=== PATIENT | male | born 1945 | race Caucasian/White ===

== ENCOUNTER 2020-05-21 12:48 | Day surgery (SDC) | payer MEDICARE, SELFPAY ==
[2020-05-14 14:33] VITALS: BMI 41.3
--- NOTE | 2020-05-20 13:37 | P.CONAN_ITS ---
Documented by User: Koki Britton 05/20/20 13:41 HPI - Anesthesia Eval Consult details Narrative: 74yo M for Colonoscopy Cardiac cleared [facility] Past Medical History Medical History (Updated 05/20/20 @ 13:39 by Koki Britton) Arthritis Atrial fibrillation Gutierrez esophagus Elevated cholesterol Heart palpitations History of blood transfusion History of GI bleed Hx of duodenal ulcer Hypertension On beta mayur at home MARYBETH on CPAP Varicose vein of leg Surgical History Surgical History (Updated 05/14/20 @ 14:42 by Barb Mcfadden) History of total hip replacement History of total right knee replacement History of ventral hernia repair Hx of appendectomy Hx of esophagogastroduodenoscopy Hx of toe surgery Social History Social History Are you a primary care administrative tech to a significant other at home: No Do you presently have visiting nurse or other home services: No Smoking Status: Former smoker Smoking Quit Date: > 30 yrs ago Use of substances other than those prescribed or required for medical reasons: Yes Substance Use Frequency: Daily Advance Directives: No Advance Directives Information Provided: No Advance Directives on File: No Recently lost weight without trying: No Meds Allergies Allergy/AdvReac Type Severity Reaction Status Date / Time No Known Allergies Allergy Unverified 05/14/20 14:25 [No Known Allergies*] Home Medications Medication Instructions Recorded Confirmed Type aspirin 325 mg PO DAILY 05/14/20 05/14/20 History bupropion HCl 300 mg PO QAM 05/14/20 05/14/20 History cholecalciferol (vitamin D3) 125 mcg PO DAILY 05/14/20 05/14/20 History [Vitamin D3] coenzyme Q10 [CoQ-10] 100 mg PO DAILY 05/14/20 05/14/20 History apkswswhaps-qeonxwdhw-emq C-Mn 1 cap PO DAILY 05/14/20 05/14/20 History [Glucosamine 1500 Complex] metoprolol succinate 100 mg PO DAILY 05/14/20 05/14/20 History omeprazole 40 mg PO DAILY 05/14/20 05/14/20 History Exam Exam Date and Time: May 20, 2020 1337 Height,Weight and Vital Signs: Height 5 ft 10 in Weight 130.635 kg Pertinent Lab Results Pertinent Lab Results: Laboratory Tests 02/14/20 02/14/20 11:49 11:49 WBC 8.1 Hgb 16.0 Hct 48.8 Plt Count 162 Sodium 140 Potassium 5.3 H Chloride 105 BUN 20 H Creatinine 1.24 Narrative Narrative: EKG 02/2020 SB@54 ECHO LVEF 65-70%, no signif valve path MIBI: Likely nml perfusion without any evidence of ischemia or infarction Assessment and Plan Assessment Anesthesia Assessment: Chart Reviewed Documented by User: Kash Vegas MD 05/21/20 13:31 PMF Past Medical History Medical History (Updated 05/20/20 @ 13:39 by Koki Britton) Arthritis Atrial fibrillation Gutierrez esophagus Elevated cholesterol Heart palpitations History of blood transfusion History of GI bleed Hx of duodenal ulcer Hypertension On beta mayur at home MARYBETH on CPAP Varicose vein of leg Surgical History Surgical History (Updated 05/14/20 @ 14:42 by Barb cMfadden) History of total hip replacement History of total right knee replacement History of ventral hernia repair Hx of appendectomy Hx of esophagogastroduodenoscopy Hx of toe surgery Social History Social History Are you a primary care administrative tech to a significant other at home: No Do you presently have visiting nurse or other home services: No Smoking Status: Former smoker Smoking Quit Date: > 30 yrs ago Use of substances other than those prescribed or required for medical reasons: Yes Substance Use Frequency: Daily Advance Directives: No Advance Directives Information Provided: No Advance Directives on File: No Recently lost weight without trying: No Meds Allergies Allergy/AdvReac Type Severity Reaction Status Date / Time No Known Allergies Allergy Unverified 05/14/20 14:25 [No Known Allergies*] Home Medications Medication Instructions Recorded Confirmed Type aspirin 325 mg PO DAILY 05/14/20 05/14/20 History bupropion HCl 300 mg PO QAM 05/14/20 05/14/20 History cholecalciferol (vitamin D3) 125 mcg PO DAILY 05/14/20 05/14/20 History [Vitamin D3] coenzyme Q10 [CoQ-10] 100 mg PO DAILY 05/14/20 05/14/20 History uqxmmeejtst-efdgsyxba-qfd C-Mn 1 cap PO DAILY 05/14/20 05/14/20 History [Glucosamine 1500 Complex] metoprolol succinate 100 mg PO DAILY 05/14/20 05/14/20 History omeprazole 40 mg PO DAILY 05/14/20 05/14/20 History Exam Airway Mallampati Class: I TM Dist: >3cm Neck ROM: Full Loose/Missing/Broken Teeth: No Heart: rrr Lungs: nl Other: ao Assessment and Plan Assessment Anesthesia Assessment: Anesthesia Plan Discussed and Chart Reviewed Final Anesthetic Review NPO: Yes ASA Class: III Final Preanesthetic Review: No Changes in Pt Med Stat, Meds/Allgs Chart Reviewed, Consent Obtained/Reviewed and Anes Risks/Benef Reviewed Patient Risk: High Procedure Risk: Low Anesthetic Plan Anesthetic Plan: MAC: Disposition: Standard PACU
[2020-05-21 13:15] VITALS: BP 144/68; PULSE 56; RESP 18; TEMP 36.2; O2SAT 97
[2020-05-21] MEDS: Lactated Ringers 1,000 ML 100 ML IVCONT (13:22)
--- NOTE | 2020-05-21 13:49 | MHC.SHP ---
Pre-Procedural Eval Section B Chief Complaint: SCREENING Details of Present Illness: colon cancer [id number]; hx atrial fibrillation Relevant Family History (Specify if Yes): No Relevant Social History: None Present Medications: see Short Stay Collaborative assessment Medical History: Significant History (MARYBETH, Hx A. Fib, currently ? stable. Obesity--BMI-42;hx of ulcer disease) Allergies: Allergies Allergy/AdvReac Type Severity Reaction Status Date / Time No Known Allergies Allergy Unverified 05/14/20 14:25 [No Known Allergies*] Review of Systems Sugical H&P ROS: Negative: Constitution, Respiratory, Neurological and Gastrointestinal and Yes, Specify: Cardiovascular (hx of atrial fib) Exam Surgical H&P Exam: Normal: HEENT, Normal: Lungs and Normal: Extremities and Significant Findings: Heart (sinus bradycardia) and Significant Findings: Abdomen (obese) Plan Diagnosis/Plan: Unchanged Patient has been examined and remains a candidate for the planned procedure--yes
[2020-05-21 14:22] VITALS: BP 106/47; PULSE 55; RESP 16; TEMP 36.6; O2SAT 95
--- NOTE | 2020-05-21 14:26 | PM.PROC ---
Brief Operative Note Date of procedure: 05/21/20 Pre-op diagnosis: Colon cancer screening Post-op diagnosis: other (Ascending colon polyp, [place] diverticulosis, 2-3+ Internal hemorrhoids.) Procedure: Colonoscopy with excisional polypectomy Anesthesia: MAC (LUZ MARIA Eli) Surgeon: China Cole Estimated blood loss (mL): 5 Pathology: other (ascending colon polyp) Condition: stable Disposition: PACU
[2020-05-21 14:37] VITALS: BP 125/75; PULSE 54; RESP 18; O2SAT 97
[2020-05-21 14:56] VITALS: TEMP 36.7; O2SAT 95
--- NOTE | 2020-05-23 08:06 | OP_ITS ---
SURGEON: China Cole MD PREOPERATIVE DIAGNOSIS: Colon cancer screening. PROCEDURE PERFORMED: Colonoscopy with excisional polypectomy. ESTIMATED BLOOD LOSS: Minimal blood loss. COMPLICATIONS: No complications. ANESTHESIA: Monitored. ANESTHESIOLOGIST: Rashida Eli CRNA. ASSISTANTS:NONE SPECIMENS: Specimen removed: ascending colon polyp excisionally with cold biopsy forceps. PRIMARY CARE PROVIDER: Dr. Hardy. POSTOPERATIVE DIAGNOSES: Polyp, ascending colon, diverticulosis throughout, internal hemorrhoids 2+. SUPERVISOR DEHYDROGENATION: China Cole M.D. CONDITION: Postprocedure, stable. FINDINGS: Prostate was not well evaluated on this exam. Video colonoscope was introducedwithout difficulty. It was navigated into the rectosigmoid. There were,multiple diverticula in clusters throughout the descending, transverse ascending colon into the region of the cecum, we arrived at the cecum. Appendiceal orifice was seen. Ileocecal valve was well seen. Prep was good throughout. Excellent spots. There was visualized 1 to 2 mm polyp in the ascending colon just before the cecum. This was removed excisionally with cold biopsy forceps. In the same area, there were 3 loosely formed AVMs, nonbleeding. Scope was slowly withdrawn, good rotational views. Anorectal verge was clear. PLAN/RECOMMENDATIONS: Repeat colon cancer screening in 5 years. DIRECTOR BROADCAST: No stylist assistant. GRAFT OR IMPLANTS: No grafts or implants. China Cole MD MEN/MODL / [id number] MTDD
== END 2020-05-21 15:20 | disposition home or self-care (01) ==
PROVIDERS: PCP Internal Medicine; Visit Provider Internal Medicine Gastroenterology
PROC: 0DJD8ZZ Inspection of Lower Intestinal Tract, Via Natural or Artificial Opening Endoscopic (ICD-10-PCS; CPT 45378; principal; 2020-05-21 13:50)
DX: Z12.11 Encounter for screening for malignant neoplasm of colon (principal); D12.2 Benign neoplasm of ascending colon; K57.30 Diverticulosis of large intestine without perforation or abscess without bleeding; K64.8 Other hemorrhoids; I10 Essential (primary) hypertension; I48.0 Paroxysmal atrial fibrillation; E66.01 Morbid (severe) obesity due to excess calories; Z68.41 Body mass index [BMI] 40.0-44.9, adult; Z79.1 Long term (current) use of non-steroidal anti-inflammatories (NSAID); Z79.82 Long term (current) use of aspirin; Z79.899 Other long term (current) drug therapy
CPT/HCPCS: 45380; 88305

== ENCOUNTER → 2020-06-10 09:40 | Outpatient (BNVA) | payer BC, SELFPAY | PROVIDERS: PCP Internal Medicine; Visit Provider Internal Medicine | DX: Z01.810 Encounter for preprocedural cardiovascular examination (principal); I48.0 Paroxysmal atrial fibrillation; G47.33 Obstructive sleep apnea (adult) (pediatric); Z99.89 Dependence on other enabling machines and devices | CPT/HCPCS: 93005 ==

== ENCOUNTER → 2021-07-17 15:36 | Outpatient (BNVA) | payer MEDICARE, SELFPAY | PROVIDERS: PCP Internal Medicine; Visit Provider Internal Medicine | DX: G47.33 Obstructive sleep apnea (adult) (pediatric) (principal); E66.01 Morbid (severe) obesity due to excess calories; Z99.89 Dependence on other enabling machines and devices; Z68.41 Body mass index [BMI] 40.0-44.9, adult | CPT/HCPCS: 99212 ==

== ENCOUNTER 2021-10-25 13:19 | Outpatient (REF) | payer MEDICARE, SELFPAY ==
[2021-10-25 14:29] LABS: Influenza A PCR NEGATIVE (Negative); Influenza B PCR NEGATIVE (Negative); Resp Syncy Virus RNA Qual PCR NEGATIVE (Negative); SARS COV2 PCR INHOUSE NEGATIVE (Negative)
== END 2021-10-25 13:20 | disposition home or self-care (01) ==
LOC: HO.LNP 13:19
PROVIDERS: Visit Provider Physician Assistant
DX: Z20.822 Contact with and (suspected) exposure to COVID-19 (principal); B34.9 Viral infection, unspecified
CPT/HCPCS: 0241U

== ENCOUNTER → 2021-11-10 10:17 | Outpatient (BNVA) | payer MEDICARE, SELFPAY | PROVIDERS: PCP Internal Medicine; Visit Provider Internal Medicine | DX: G47.33 Obstructive sleep apnea (adult) (pediatric) (principal); J20.9 Acute bronchitis, unspecified; E66.01 Morbid (severe) obesity due to excess calories; Z99.89 Dependence on other enabling machines and devices; Z68.41 Body mass index [BMI] 40.0-44.9, adult | CPT/HCPCS: 99212 ==

== ENCOUNTER → 2022-03-16 10:13 | Outpatient (BNVA) | payer MEDICARE, SELFPAY | PROVIDERS: PCP Internal Medicine; Visit Provider Internal Medicine | DX: G47.33 Obstructive sleep apnea (adult) (pediatric) (principal); E66.01 Morbid (severe) obesity due to excess calories; Z68.41 Body mass index [BMI] 40.0-44.9, adult; Z99.89 Dependence on other enabling machines and devices | CPT/HCPCS: 99212 ==

== ENCOUNTER 2022-04-29 08:11 | Outpatient (REF) | payer MEDICARE, SELFPAY ==
[2022-04-29 08:33] LABS: MANUAL DIFF FLAG NO
[2022-04-29 08:43] LABS: Basophils Percent Auto 0.5 % (0-2); Eosinophils Absolute Auto 0.4 X10*3/uL (0.0-0.4); Eosinophils Percent Auto 4.8 % (0-4); Hematocrit 48.3 % (42.0-52.0); Hemoglobin 16.4 g/dl (14.0-18.0); Imm Gran Abs Auto 0.03 X10*3/uL (0.00-0.03); Imm Gran Pct Auto 0.4 % (0.0-0.4); Lymphocytes Absolute Auto 0.7 X10*3/uL (1.2-4.9); Lymphocytes Percent Auto 8.8 % (20-40); Mean Corpuscular Hemoglobin 29.7 pg (27.0-33.0); Mean Corpuscular Volume 87.5 fL (80.0-98.0); Monocytes Absolute Auto 0.9 X10*3/uL (0.1-1.2); Monocytes Percent Auto 11.8 % (2-11); Neutrophils Absolute Auto 5.4 x10*3/uL (2.0-8.3); Neutrophils Percent Auto 73.7 % (45-73); Platelet Count 174 X10*3/uL (160-400); Red Blood Count 5.52 X10*6/uL (4.60-5.80); Red Cell Distribution Width 13.8 % (11.0-16.0); White Blood Count 7.4 X10*3/uL (4.8-10.8)
[2022-04-29 09:18] LABS: Alanine Aminotransferase 32 U/L (0-40); Albumin Level 4.3 g/dL (3.5-5.0); Alkaline Phosphatase 119 U/L (39-117); Anion Gap 12 (12-20); Aspartate Amino Transferase 27 U/L (5-37); Bilirubin Total 0.6 mg/dL (0.0-1.0); Blood Urea Nitrogen 23 mg/dL (9-16); Calcium 9.8 mg/dL (8.4-10.2); Carbon Dioxide 30 mmol/L (22-29); Chloride 106 mmol/L (96-108); Cholesterol 194 mg/dL; Estimated Glomerular Filt Rate 51; Glucose Fasting 112 mg/dL (60-99); HDL Cholesterol 43 mg/dL; LDL Cholesterol Calculated 131 mg/dl; Potassium 5.4 mmol/L (3.3-5.1); Sodium 143 mmol/L (135-145); Total Protein 7.2 g/dL (6.5-8.0); Triglycerides 104 mg/dL
[2022-04-29 09:35] LABS: Appearance Urine Clear; Color Urine Yellow; Glucose Urine UA Negative (Negative); Leukocyte Esterase Urine Trace (Negative); Nitrite Urine Negative (Negative); PH 6.5 (5.0-9.0); Specific Gravity - Urine 1.025 (1.005-1.025); UMIC TRIGGER UA YES; Urine Blood Negative (Negative); Urine Ketones Negative (Negative); Urine Protein Negative (Neg-Trace)
[2022-04-29 09:43] LABS: Prostate Specific Antigen 1.71 ng/mL (<0.05-4.0); Thyroid Stimulating Hormone 3.29 uIU/mL (0.32-4.0); Vitamin D 25-OH Total 62.2 ng/mL (>30)
[2022-04-29 09:43] LABS: Bacteria Urine None Seen (None Seen); Hyaline Casts Urine 0-2 /LPF (0-2); RBC Urine 0-2 /HPF (0-2); Squamous Epithelial Cell Urine 0-2 /HPF (0-2); WBC Urine 0-5 /HPF (0-5)
== END 2022-04-29 08:12 | disposition home or self-care (01) ==
LOC: HO.LAB 08:11
PROVIDERS: Visit Provider Internal Medicine
DX: Z12.5 Encounter for screening for malignant neoplasm of prostate (principal); I48.0 Paroxysmal atrial fibrillation; E66.01 Morbid (severe) obesity due to excess calories; G47.33 Obstructive sleep apnea (adult) (pediatric); M17.12 Unilateral primary osteoarthritis, left knee; N40.1 Benign prostatic hyperplasia with lower urinary tract symptoms; R35.0 Frequency of micturition; R39.198 Other difficulties with micturition
CPT/HCPCS: 36415; 51798; 80053; 80061; 81001; 82306; 84153; 84443; 85025; 99202

== ENCOUNTER 2022-08-31 08:03 | Outpatient (REF) | payer MEDICARE, SELFPAY ==
--- NOTE | ~2022-08-31 | US_ITS ---
EXAMINATION: US RETROPERITONEAL LIMITED (RENAL ONLY) CLINICAL INFORMATION: Other difficulties with micturition. COMPARISON: CT abdomen and pelvis with contrast 04/06/2019. TECHNIQUE: Real-time imaging of the kidneys. FINDINGS: RIGHT KIDNEY: 12.0 x 4.8 x 6.0 cm (SAG x AP x TRV). The kidney is normal in size, contour, and echogenicity. Renal cortical thickness is normal. No calculi or focal parenchymal lesions. No hydronephrosis. LEFT KIDNEY: 14.3 x 5.8 x 5.2 cm (SAG x AP x TRV). The kidney is normal in size, contour, and echogenicity. Renal cortical thickness is normal. No renal calculi or hydronephrosis. A benign 4.6 cm cyst is again noted in the upper pole of the left kidney which needs no additional imaging or followup. No solid renal masses. US/US renal BI IMPRESSION: Negative exam.
== END 2022-08-31 08:04 | disposition home or self-care (01) ==
LOC: HO.US 08:03
PROVIDERS: PCP Internal Medicine; Visit Provider Urology
DX: N40.1 Benign prostatic hyperplasia with lower urinary tract symptoms (principal); R39.198 Other difficulties with micturition
CPT/HCPCS: 76775

== ENCOUNTER → 2022-11-17 10:19 | Outpatient (BNVA) | payer MEDICARE, SELFPAY | PROVIDERS: PCP Internal Medicine; Visit Provider Internal Medicine | DX: G47.33 Obstructive sleep apnea (adult) (pediatric) (principal); E66.01 Morbid (severe) obesity due to excess calories; Z99.89 Dependence on other enabling machines and devices; Z68.42 Body mass index [BMI] 45.0-49.9, adult | CPT/HCPCS: 99212 ==

== ENCOUNTER → 2023-02-04 15:17 | Outpatient (REF) | payer MEDICARE, SELFPAY ==
--- NOTE | 2023-02-04 15:23 | ECG_ITS ---
Test Reason : AFIB Blood Pressure : / mmHG Vent. Rate : 062 BPM Atrial Rate : 000 BPM P-R Int : 000 ms QRS Dur : 100 ms QT Int : 414 ms P-R-T Axes : 000 -29 007 degrees QTc Int : 420 ms Atrial fibrillation Abnormal ECG When compared with ECG of 16-JUL-2019 12:29, Atrial fibrillation has replaced Sinus rhythm Referred By: Chris Hardy Electronically Signed By:Damon Rodriguez
--- NOTE | 2023-02-04 15:24 | CA_ITS ---
Transthoracic Echocardiogram Patient (Last, First, Middle): Bravo Moore C Gender: Male Date of : 1945 Age: 77 Procedure Date: 02/04/2023 Procedure Type: Transthoracic Echocardiogram Location: OP Height: 175.26 cm Weight: 127.01 kg BSA: 2.38 m2 Heart Rate: bpm BP: 133 / 78 mmHg Wrist Hemmer: TO Referring MD: Chris Hardy DO Symptoms: PAF I48.0 Study Quality: Fair/Contrast Conclusions: - Normal left ventricular cavity size. There is mildly increased left ventricular wall thickness. The left ventricular systolic function is hyperdynamic. The visually estimated ejection fraction is >70%. - E/E prime ratio is >15, consistent with elevated filling pressures. - Mildly increased right ventricular cavity size. There is normal right ventricular systolic function. - There is moderate aortic valve stenosis. The peak aortic velocity is 3.14 m/s. The mean gradient is 21 mmHg. The aortic valve area is 0.96 cm2. - There is mild dilatation of the ascending aorta measuring 3.80 cm and mild dilatation of the aortic arch measuring 3.70 cm. Findings Procedure Information Contrast agent, definity, is being given per protocol without apparent complications. Left Ventricle Normal left ventricular cavity size. There is mildly increased left ventricular wall thickness. The left ventricular systolic function is hyperdynamic. The visually estimated ejection fraction is >70%. There is no evidence of regional wall motion abnormalities. Abnormal diastolic function is noted. Spectral Doppler is indicative of a restrictive filling pattern. E/E prime ratio is >15, consistent with elevated filling pressures. Right Ventricle Mildly increased right ventricular cavity size. There is normal right ventricular systolic function. Atria The left atrium is mildly dilated. The right atrium is normal in size. Aortic Valve There is a normal trileaflet aortic valve. There is moderate calcification of the aortic valve. There is moderate aortic valve stenosis. The peak aortic velocity is 3.14 m/s. The mean gradient is 21 mmHg. The aortic valve area is 0.96 cm2. There is no aortic valve regurgitation. Mitral Valve There is mild mitral annular calcification. There is no mitral valve regurgitation. There is no mitral valve stenosis. Pulmonic Valve Normal pulmonic valve structure and function. There is no pulmonic valve regurgitation. Tricuspid Valve Normal tricuspid valve structure and function. There is no tricuspid valve regurgitation. Tricuspid regurgitation envelope is inadequate for calculation of right ventricular systolic pressure. Normal right atrial pressure. Great Vessels There is mild dilatation of the ascending aorta measuring 3.80 cm and mild dilatation of the aortic arch measuring 3.70 cm. The visualized portions of the pulmonary artery and branches are normal. Venous The inferior vena cava is normal in size and collapses greater than 50% with inspiration. Pericardium/Pleural There is no evidence of pericardial effusion. Prior Study Comparison Changes noted compared to prior study dated: 11/26/2017. Moderate present Measurements 2D Linear Measurements IVSd: 1.20 0.6-0.9/0.6-1.0 cm LVIDd: 5.30 3.9-5.3/4.2-5.9 cm LVIDd Index: 2.23 2.4-3.2/2.2-3.1 cm/m2 LVIDs: 2.80 2.0-3.6 cm LVPWd: 1.10 0.7-1.1 cm LA Diam: 3.80 2.7-3.8/3.0-4.0 cm LAIDs Index: 1.60 1.5-2.3 cm/m2 LV Mass: 301.70 67-162/88-224 g LV Mass Index: 126.77 43-95/49-115 g/m2 LVOT Diam: 2.00 3.0+(-)1.3 cm 2D Systolic Function EF 4C: 66.70 >55% EF 2C: 68.40 >55% EF BiP: 68.20 >55% Mitral Valve MV VTI: 0.41 MV Pk Toni: 1.10 MV Mn Toni: 0.65 MV Pk Grad: 5.00 MV Mn Grad: 2.00 MV Pk E: 1.24 MV PK A: 0.53 MV Decel Time: 256.00 E/A: 2.30 E'Lateral: 9.57 E'Medial: 4.79 E/E' Med: 25.90 E/E' Lat: 13.00 PHT: 75.00 MVA PHT: 2.93 MVA Continuity: 1.97 Decel [place]: 4.84 Aortic Valve AoV Pk Toni: 3.14 AoV Mn Toni: 2.13 AoV VTI: 0.84 AoV Pk Grad: 39.00 Aov Mn Grad: 21.00 ERNESTO Cont.VTI: 0.96 LVOT LVOT Pk Toni: 0.97 LVOT Mn Toni: 0.63 LVOT VTI: 0.26 LVOT Pk Grad: 4.00 LVOT Mn Grad: 2.00 LVOT Diam: 2.00 LVOT Area: 3.14 Diastolic Function MV Pk E: 1.24 MV Pk A: 0.53 E/A: 2.30 E'Medial: 4.79 E/E' Med: 25.90 E' Laterial: 9.57 E/E' Lat: 13.00 Right Ventricle TAPSE (mm): 23.10 TVS' Toni: 10.20 Tricuspid Valve TR Pk Toni: 3.03 TR Pk Grad: 37.00 Great Vessels Aorta Sinus of Valsalva: 3.40 2.0-3.[address] [place]: 2.20 1.7-3.4 cm Ao Asc: 3.80 2.1-3.4 cm Ao Arch: 3.70 Updated in Other Vendor System with Status of Final Damon Rodriguez MD electronically signed on 02/06/2023 9:08:43 PM with status of Final
== END ==
LOC: HO.CARD 15:17
PROVIDERS: PCP Internal Medicine; Visit Provider Internal Medicine
DX: I48.0 Paroxysmal atrial fibrillation (principal)
CPT/HCPCS: 93005; 93306; Q9957

== ENCOUNTER → 2023-02-04 15:23 | Outpatient (BNV) | payer MEDICARE, SELFPAY | PROVIDERS: PCP Internal Medicine; Visit Provider Internal Medicine Cardiovascular Disease | DX: I48.0 Paroxysmal atrial fibrillation (principal) | CPT/HCPCS: 93010; 93306 ==

== ENCOUNTER 2023-02-25 11:19 | Outpatient (AMB) | payer MEDICARE, SELFPAY ==
--- NOTE | 2023-02-25 11:22 | A.OFFVIS_ITS ---
Intake Vital Signs 02/25/23 11:23 Height 5 ft 9 in Weight 279 lb 15.793 oz BMI 41.3 BP 136/72 Blood Pressure Location Lt brachial Position Sitting Pulse 61 Intake Visit Reasons: 2020/FRIDA/Rose Hardy Intake Note: overdue follow up Stiff Straw Hat Washer Required: No Accompanied by: Self / Same As Patient Allergies No Known Allergies [No Known Allergies*] Allergy (Verified 02/25/23 11:24) Medication List - Last Reconciled 02/25/23 by Arnoldo Warren MD cholecalciferol (vitamin D3) 25 mcg PO DAILY coenzyme Q10 (CoQ-10) 100 mg PO DAILY dsuqoolfmqp-mcxeafgdq-fsc C-Mn 500-400 mg 1 cap PO DAILY hydrochlorothiazide 25 mg PO DAILY metoprolol succinate ER 100 mg PO DAILY omeprazole 40 mg PO DAILY tamsulosin (Flomax) 0.4 mg PO BEDTIME HPI HPI Comments History of Present Illness Details Bravo returns after almost 3 years. Last seen in 2019. To recall, multiple medical comorbidities including obesity, obstructive sleep apnea, hypertension among others. Episode of atrial fibrillation with rapid rate in 2018. He converted to sinus and was on anticoagulation but later stopped taking it. Then due to aches and pains, was taking NSAIDs, and then had GI bleeding from duodenal ulcers. Since around that time he has not really taken any anticoagulation. In the past, discussed numerous times about going back on some anticoagulation but he never was interested. He continues to state that he just wants to take supplements which he says are also blood thinners. Overall generally doing okay. No clear cardiac symptoms like angina or shortness of breath or in fact anything cardiac sounding. Weight is just about the same as before. [facility] Medical History Acute bronchitis Arthritis Atrial fibrillation Gutierrez esophagus Elevated cholesterol Heart palpitations History of blood transfusion History of GI bleed Hx of duodenal ulcer Hypertension Morbid obesity On beta mayur at home MARYBETH on CPAP PAF (paroxysmal atrial fibrillation) Varicose vein of leg Surgical History History of total hip replacement History of total right knee replacement History of ventral hernia repair Hx of appendectomy Hx of esophagogastroduodenoscopy Hx of toe surgery Family History Father Lung cancer Mother Cancer Social History Are you a primary acute care occupational therapist to a significant other at home: No Do you presently have visiting nurse or other home services: No Alcohol intake: current Alcohol intake frequency: a few times a week Patient Tobacco Use Status: Former Tobacco user Review of Systems Const Denies chills, Denies fatigue, Denies fever(s), Denies frequent falls, Denies weakness, Denies weight gain and Denies weight loss ENT Denies dizziness Card Denies chest pain, Denies leg edema, Denies lightheadedness, Denies palpitations, Denies dyspnea, Denies dyspnea on exertion, Denies orthopnea and Denies other (Loss of consciousness) Resp Denies cough, Denies dyspnea and Denies dyspnea on exertion GI Denies hematochezia and Denies change in bowel habits Reports no additional complaints and Reports as per HPI Musc Denies abnormal gait, Denies muscle weakness, Denies numbness, Denies radiating pain into limb and Denies tingling Skin/Breast Reports system reviewed and no additional complaints, except as documented and Reports as per HPI Neuro Denies abnormal gait, Denies dizziness, Denies frequent falls, Denies numbness, Denies tingling and Denies weakness Endo Denies fatigue and Denies palpitations Physical Exam Vital Signs: Last Vital Signs Pulse 61 02/25/23 11:23 BP 136/72 02/25/23 11:23 BMI result Body Mass Index 41.3 Const General: comfortable and no acute distress Orientation/consciousness: patient oriented x3 HEENT Other: Unremarkable Head: Yes normal to inspection Neck Neck: Yes normal visual inspection Chest Chest palpation & inspection: normal inspection of the chest Resp Auscultation: clear to auscultation bilaterally Cardio Palpation: normal PMI Heart sounds: S1 normal heart sound present, S2 normal heart sound present, no gallops, Murmur heart sound present systolic II/ and at the right sternal border and no rubs GI Palpation (GI): Soft to palpation Back/Spine/Pelvis Other: unremarkable Skin General skin exam: no rashes or lesions noted Neuro General: patient oriented x3 Extrem General: Yes normal to inspection Psych Mental Status: mental status grossly normal Office Procedures EKG Details: EKG with sinus rhythm and PACs. No significant ST-T changes and otherwise unremarkable. [id number], Complete Assessment & Plan Assessment & Plan (1) PAF (paroxysmal atrial fibrillation): Code(s): I48.0 - Paroxysmal atrial fibrillation Plan: Seems stable. No clinically documented episodes recently. He remains on beta- blockers. Still not interested in any anticoagulation and again discussed today. Will get a Holter monitor. (2) Non-rheumatic aortic stenosis: Code(s): I35.0 - Nonrheumatic aortic (valve) stenosis Plan: In the most recent echocardiogram, mean gradient across aortic valve was 21 mm Hg. Calculated valve area of 0.96 sq cm. Dimensionless index 0.3. Hyperdynamic LVEF. Overall, suspect no more than moderate aortic stenosis. Will need to be monitored periodically. Discussed with patient. (3) MARYBETH on CPAP: Comment: H/O MARYBETH SINCE 2014 HE DOES HAVE CPAP MACHINE AND USES REGULARLY CURRENTLY DOING BETTER WITH PRESSURE OF 12 CM. BUT HE HAS ISSUE WITH THE MASK, HAS SAYS AIR LEAK. JUST RECEIVED THE NASAL PILLOWS BUT WITHOUT THE HEAD GEAR. I ALSO GAVE HIM A LARGE SIZE FULLFACE MASK, TO TRY. MY OFFICE IS TRYING TO CONTACT THE [facility] HE OFFICE, AND HAVE THEM CHECK HIS CPAP MACHINE WELL THE MASKS. Code(s): G47.33 - Obstructive sleep apnea (adult) (pediatric); Z99.89 - Dependence on other enabling machines and devices Plan: Continue CPAP. Orders: Orders ECG 3 day holter monitor Today I48.0 - Paroxysmal atrial fibrillation Coding Level of Care Code Est Pt Level 4 (67579) Diagnoses PAF (paroxysmal atrial fibrillation) I48.0 Non-rheumatic aortic stenosis I35.0 MARYBETH on CPAP G47.33; Z99.89 CPT Codes EKG - CPT: 07706-[id number], Complete ([id number])
[2023-02-25 11:23] VITALS: BP 136/72; PULSE 61; BMI 41.3
== END 2023-02-25 11:46 | disposition home or self-care (01) ==
PROVIDERS: PCP Internal Medicine; Referring Provider Internal Medicine; Visit Provider Internal Medicine
DX: I48.0 Paroxysmal atrial fibrillation (principal); I35.0 Nonrheumatic aortic (valve) stenosis; G47.33 Obstructive sleep apnea (adult) (pediatric); Z99.89 Dependence on other enabling machines and devices
CPT/HCPCS: 93010; 99214

== ENCOUNTER → 2023-02-25 11:19 | Outpatient (BNVA) | payer MEDICARE, SELFPAY | PROVIDERS: PCP Internal Medicine; Referring Provider Internal Medicine; Visit Provider Internal Medicine | DX: I48.0 Paroxysmal atrial fibrillation (principal); I35.0 Nonrheumatic aortic (valve) stenosis; G47.33 Obstructive sleep apnea (adult) (pediatric); Z79.899 Other long term (current) drug therapy; Z99.89 Dependence on other enabling machines and devices | CPT/HCPCS: 93005; 99212 ==

== ENCOUNTER → 2023-03-18 09:36 | Outpatient (REF) | payer MEDICARE, SELFPAY ==
--- NOTE | 2023-03-18 09:39 | HM_ITS ---
* Total monitoring time 3 days. * Underlying rhythm is sinus. Average ventricular rate 65/Min. Range 49- 91/Min. * Frequent supraventricular ectopy with a burden of 17%. * No definitive atrial fibrillation. * Very rare ventricular ectopy. * Pauses noted, 2.8 seconds during awake hours. * No patient markers or events in diary. MTDD
== END ==
LOC: HO.CARD 09:36
PROVIDERS: PCP Internal Medicine; Visit Provider Internal Medicine
DX: I48.0 Paroxysmal atrial fibrillation (principal)
CPT/HCPCS: 93242

== ENCOUNTER 2023-05-31 09:47 | Outpatient (AMB) | payer MEDICARE, SELFPAY ==
--- NOTE | 2023-05-31 09:55 | A.OFFVIS_ITS ---
Intake Vital Signs 05/31/23 09:56 Height 5 ft 9 in Weight 283 lb BMI 41.8 BP 122/74 Blood Pressure Location Lt brachial Position Sitting Pulse 58 Pulse Source Pulse Oximeter Pulse Oximetry (%) 96 Oxygen Delivery Method Room Air Intake Visit Reasons: Obstructive sleep apnea Intake Note: pt is here for follow up and states the humidfication is not working properly, but using is it everynight, and mask issue Clipman Required: No Allergies No Known Allergies [No Known Allergies*] Allergy (Verified 05/31/23 10:23) Medication List - Last Reconciled 05/31/23 by Corey Cary MD cholecalciferol (vitamin D3) 25 mcg PO DAILY coenzyme Q10 (CoQ-10) 100 mg PO DAILY wtoubremqkv-xvpkbtqpv-enc C-Mn 500-400 mg 1 cap PO DAILY hydrochlorothiazide 25 mg PO DAILY metoprolol succinate ER 100 mg PO DAILY omeprazole 40 mg PO DAILY tamsulosin (Flomax) 0.4 mg PO BEDTIME Do you need a note to return to daycare/school/sports/work: No HPI Obstructive sleep apnea HPI Details THIS 77 YEARS OLD VERY PLEASANT GENTLEMAN WHO IS MORBIDLY OBESE, ESPECIALLY WITH ABDOMINAL OBESITY, HE HAS DIAGNOSIS OF OBSTRUCTIVE SLEEP APNEA FOR THE PAST MANY YEARS, AND HAS BEEN USING CPAP. HIS DEVICE IS MORE THAN 6 YEARS OLD, HIS REGIONAL SLEEP STUDY WAS PERFORMED SOMEWHERE IN [facility], WE DO NOT HAVE A COPY OF THAT SLEEP STUDY HE USES THE CPAP EVERY NIGHT BUT CLAIMS THAT HE HAS ISSUE WITH THE HUMIDIFICATION CHAMBER, HE WAKES UP WITH DRY MOUTH. CURRENTLY USING FULL FACE MASK BUT HE LIKES TO TRY A NASAL MASK. I EXPLAINED TO HIM THAT WITH THE NASAL MASK HE MAY HAVE TO USE CHINSTRAP, AND THEN HE SAY IS HE WILL RATHER CONTINUE THE FULLFACE MASK. [facility] Medical History Acute bronchitis Morbid obesity PAF (paroxysmal atrial fibrillation) Arthritis Varicose vein of leg Elevated cholesterol On beta mayur at home History of blood transfusion Gutierrez esophagus MARYBETH on CPAP History of GI bleed Hypertension Heart palpitations Hx of duodenal ulcer Atrial fibrillation Surgical History History of total hip replacement Hx of toe surgery History of total right knee replacement Hx of esophagogastroduodenoscopy History of ventral hernia repair Hx of appendectomy Family History Father Lung cancer Mother Cancer Social History Are you a primary career development associate to a significant other at home: No Do you presently have visiting nurse or other home services: No Alcohol intake: current Alcohol intake frequency: a few times a week Patient Tobacco Use Status: Former Tobacco user Review of Systems Const All systems reviewed & are unremarkable except as noted in HPI and below Eyes Reports no additional complaints ENT Reports nasal congestion (ONLY MILD OFF AND ON) Card Denies chest pain, Reports irregular heart rhythm, Denies leg edema and Denies dyspnea Resp Denies cough, Denies dyspnea and Denies wheezing GI Reports no additional complaints Reports no additional complaints Musc Reports no additional complaints Skin/Breast Reports system reviewed and no additional complaints, except as documented Neuro Reports no additional complaints Psych Reports no additional complaints Aller/Immun Denies wheezing Physical Exam Vital Signs: Last Vital Signs Pulse 58 05/31/23 09:56 BP 122/74 05/31/23 09:56 Pulse Ox 96 05/31/23 09:56 Oxygen Delivery Method Room Air 05/31/23 09:56 BMI result Body Mass Index 41.8 Const General: healthy appearing (EXCEPT FOR BEING OVERWEIGHT), comfortable, no acute distress, alert and awake Orientation/consciousness: patient oriented x3 HEENT Head: Yes normal to inspection General nose exam: No nasal polyps present and No nasal discharge present Face and sinus: Yes sinuses nontender Mouth: oropharynx normal Throat: Yes posterior oropharynx normal Eyes General: appearance normal, both eyes and all related structures Neck Neck: Yes normal visual inspection, Yes no lymphadenopathy, Yes trachea midline and Yes no JVD Thyroid: Thyroid normal Chest Chest palpation & inspection: normal inspection of the chest, normal palpation of entire chest wall and no tenderness Resp Other: PERCUSSION NOTE RESONANT, BREATH SOUNDS ARE SLIGHTLY DISTANT PROBABLY DUE TO HIS OBESE CHEST WALL. THERE ARE NO WHEEZES OR CREPITATIONS Cardio Palpation: normal PMI Rate: regular rate Rhythm: regular rhythm Heart sounds: no gallops and no murmurs GI Palpation (GI): Soft to palpation, nontender, No hepatosplenomegaly present and no masses Auscultation: normal bowel sounds Back/Spine/Pelvis Thoracic/Lumbar Spine: thoracic and lumbar spine normal to inspection Skin General skin exam: no rashes or lesions noted Neuro General: patient oriented x3 and no focal motor deficits Cranial nerves: Yes CN's II-XII intact bilaterally Extrem General: Yes normal to inspection, Yes no clubbing, cyanosis or edema and Yes no calf tenderness Psych Appearance: grossly normal and well kempt Speech and movement: Normal speech and movement present Assessment & Plan Assessment & Plan (1) Morbid obesity: Comment: PATIENT REMAINS GROSSLY OBESE, WHICH IS THE UNDERLYING CAUSE OF SLEEP APNEA, DISCUSSED WITH HIM ABOUT WEIGHT REDUCTION. HE IS NOT APT TO JOIN ANY WEIGHT MANAGEMENT PROGRAM. NOT VERY MOTIVATED TO DO ANY EXERCISE. Code(s): E66.01 - Morbid (severe) obesity due to excess calories Plan: DISCUSSED WITH HIM ABOUT NEED TO DO DAILY EXERCISE SUCH WALKING AND ALSO TO REDUCE THE CALORIES. (2) MARYBETH on CPAP: Comment: H/O MARYBETH SINCE 2014 HE DOES HAVE CPAP MACHINE AND USES REGULARLY CURRENTLY DOING BETTER WITH PRESSURE OF 12 CM. SINCE LAST VISIT WE HAD GIVEN HIM FULLFACE MASK, NOW HE IS HAVING TROUBLE EVEN WITH THIS ONE. Code(s): G47.33 - Obstructive sleep apnea (adult) (pediatric); Z99.89 - Dependence on other enabling machines and devices Plan: WILL SEND A NOTE TO DME TO GIVE HIM A NEW MASK AND CHECK THE HUMIDIFICATION UNIT OF THE CPAP DEVICE. CPAP DEVICE BEING ALMOST 7 TO 8 YEARS OLD, HE MAY NEED TO HAVE A NEW MODEL. Coding Level of Care Code Est Pt Level 3 (58261) Diagnoses Morbid obesity E66.01 MARYBETH on CPAP G47.33; Z99.89
[2023-05-31 09:56] VITALS: BP 122/74; PULSE 58; O2SAT 96; BMI 41.8
== END 2023-05-31 10:24 | disposition home or self-care (01) ==
PROVIDERS: PCP Internal Medicine; Visit Provider Internal Medicine
DX: E66.01 Morbid (severe) obesity due to excess calories (principal); G47.33 Obstructive sleep apnea (adult) (pediatric); Z99.89 Dependence on other enabling machines and devices
CPT/HCPCS: 99213

== ENCOUNTER → 2023-05-31 09:47 | Outpatient (BNVA) | payer MEDICARE, SELFPAY | PROVIDERS: PCP Internal Medicine; Visit Provider Internal Medicine | DX: G47.33 Obstructive sleep apnea (adult) (pediatric) (principal); E66.01 Morbid (severe) obesity due to excess calories; Z68.41 Body mass index [BMI] 40.0-44.9, adult; Z99.89 Dependence on other enabling machines and devices | CPT/HCPCS: 99212 ==

== ENCOUNTER 2023-08-30 10:27 | Outpatient (AMB) | payer MEDICARE, SELFPAY ==
--- NOTE | 2023-08-30 10:33 | A.OFFVIS_ITS ---
Intake Vital Signs 08/30/23 10:36 Height 5 ft 9 in Weight 279 lb 5 oz BMI 41.2 BP 132/86 Blood Pressure Location Lt brachial Position Sitting Respiration 18 Pulse 56 Pulse Source Pulse Oximeter Pulse Oximetry (%) 96 Oxygen Delivery Method Room Air Intake Visit Reasons: Obstructive sleep apnea Allergies No Known Allergies [No Known Allergies*] Allergy (Verified 08/30/23 10:53) Medication List - Last Reconciled 08/30/23 by Corey Cary MD cholecalciferol (vitamin D3) 25 mcg PO DAILY coenzyme Q10 (CoQ-10) 100 mg PO DAILY dvgfvlgogqi-edemkyiov-awd C-Mn 500-400 mg 1 cap PO DAILY hydrochlorothiazide 25 mg PO DAILY metoprolol succinate ER 100 mg PO DAILY omeprazole 40 mg PO DAILY tamsulosin (Flomax) 0.4 mg PO BEDTIME Do you need a note to return to daycare/school/sports/work: No HPI Obstructive sleep apnea HPI Details 77 years old gentleman with morbid obesi ty, He is known to have obstructive sleep apnea since 2017 when he had his sleep annetta dy, at some place in [place]. Has been using his CPAP regularly, However he is having problem with the CPAP device and especially with the tubing system. He complains of lot of air leak at night, His CPAP device is 7 years old and does not have any compliance monitoring mechanism. He would like to have a new CPAP device. [facility] Medical History Acute bronchitis Morbid obesity PAF (paroxysmal atrial fibrillation) Arthritis Varicose vein of leg Elevated cholesterol On beta mayur at home History of blood transfusion Gutierrez esophagus MARYBETH on CPAP History of GI bleed Hypertension Heart palpitations Hx of duodenal ulcer Atrial fibrillation Surgical History History of total hip replacement Hx of toe surgery History of total right knee replacement Hx of esophagogastroduodenoscopy History of ventral hernia repair Hx of appendectomy Family History Father Lung cancer Mother Cancer Social History Are you a primary child care provider to a significant other at home: No Do you presently have visiting nurse or other home services: No Alcohol intake: current Alcohol intake frequency: a few times a week Patient Tobacco Use Status: Former Tobacco user Review of Systems Const All systems reviewed & are unremarkable except as noted in HPI and below Eyes Reports no additional complaints ENT Reports nasal congestion (ONLY MILD OFF AND ON) Card Denies chest pain, Reports irregular heart rhythm, Denies leg edema and Denies dyspnea Resp Denies cough, Denies dyspnea and Denies wheezing GI Reports no additional complaints Reports no additional complaints Musc Reports no additional complaints Skin/Breast Reports system reviewed and no additional complaints, except as documented Neuro Reports no additional complaints Psych Reports no additional complaints Aller/Immun Denies wheezing Physical Exam Vital Signs: Last Vital Signs Pulse 56 08/30/23 10:36 Resp 18 08/30/23 10:36 BP 132/86 08/30/23 10:36 Pulse Ox 96 08/30/23 10:36 Oxygen Delivery Method Room Air 08/30/23 10:36 BMI result Body Mass Index 41.2 Const General: healthy appearing (EXCEPT FOR BEING OVERWEIGHT), comfortable, no acute distress, alert and awake Orientation/consciousness: patient oriented x3 HEENT Head: Yes normal to inspection General nose exam: No nasal polyps present and No nasal discharge present Face and sinus: Yes sinuses nontender Mouth: oropharynx normal Throat: Yes posterior oropharynx normal Eyes General: appearance normal, both eyes and all related structures Neck Neck: Yes normal visual inspection, Yes no lymphadenopathy, Yes trachea midline and Yes no JVD Thyroid: Thyroid normal Chest Chest palpation & inspection: normal inspection of the chest, normal palpation of entire chest wall and no tenderness Resp Other: PERCUSSION NOTE RESONANT, BREATH SOUNDS ARE SLIGHTLY DISTANT PROBABLY DUE TO HIS OBESE CHEST WALL. THERE ARE NO WHEEZES OR CREPITATIONS Cardio Palpation: normal PMI Rate: regular rate Rhythm: regular rhythm Heart sounds: no gallops and no murmurs GI Palpation (GI): Soft to palpation, nontender, No hepatosplenomegaly present and no masses Auscultation: normal bowel sounds Back/Spine/Pelvis Thoracic/Lumbar Spine: thoracic and lumbar spine normal to inspection Skin General skin exam: no rashes or lesions noted Neuro General: patient oriented x3 and no focal motor deficits Cranial nerves: Yes CN's II-XII intact bilaterally Extrem General: Yes normal to inspection, Yes no clubbing, cyanosis or edema and Yes no calf tenderness Psych Appearance: grossly normal and well kempt Speech and movement: Normal speech and movement present Results Reviewed Results Reviewed: Compliance data not available Assessment & Plan Assessment & Plan (1) Morbid obesity: Comment: PATIENT REMAINS GROSSLY OBESE, WHICH IS THE UNDERLYING CAUSE OF SLEEP APNEA, HE CLAIMS TO USE CPAP EVERY NIGHT HOWEVER HE IS HAVING SOME ISSUES, WITH AIR LEAK. Code(s): E66.01 - Morbid (severe) obesity due to excess calories Plan: DISCUSSED WITH HIM ABOUT WEIGHT REDUCTION. HE IS NOT APT TO JOIN ANY WEIGHT MANAGEMENT PROGRAM. NOT VERY MOTIVATED TO DO ANY EXERCISE. HAS HIS CPAP DEVICE IS MORE THAN 7 YEARS OLD. AND DOES NOT HAVE COMPLIANCE MONITORING MECHANISM, I THINK HE NEEDS A NEW CPAP DEVICE. WE DO NOT HAVE COPY OF HIS PREVIOUS SLEEP STUDY. I A.M. GOING TO ORDER A NEW HOME-BASED SLEEP STUDY FOR DOCUMENTATION AND RECONFIRM NG HIS DIAGNOSIS. (2) MARYBETH on CPAP: Comment: H/O MARYBETH SINCE 2014 HE DOES HAVE CPAP MACHINE AND USES REGULARLY CURRENTLY DOING BETTER WITH PRESSURE OF 12 CM. HE IS USING FULLFACE MASK BUT EVEN WITH THAT HE IS HAVING SOME, AIR LEAK ALSO HAS SOME AIR LEAK THROUGH THE TUBING . Code(s): G47.33 - Obstructive sleep apnea (adult) (pediatric); Z99.89 - Dependence on o ther enabling machines and devices Plan: ORDER FOR NEW SUPPLIES SENT. ALSO WOULD ORDER A HOME-BASED SLEEP STUDY TO RECONFIRM THE DIAGNOSIS, AFTER THAT I WILL ORDER A NEW CPAP DEVICE FOR HER. Orders: Orders RT home sleep study Today E66.01 - Morbid (severe) obesity due to excess calories, G47.33 - Obstructive sleep apnea (adult) (pediatric), Z99.89 - Dependence on other enabling machines and devices Coding Level of Care Code Est Pt Level 3 (56436) Diagnoses Morbid obesity E66.01 MARYBETH on CPAP G47.33; Z99.89
[2023-08-30 10:36] VITALS: BP 132/86; PULSE 56; RESP 18; O2SAT 96; BMI 41.2
== END 2023-08-30 11:07 | disposition home or self-care (01) ==
PROVIDERS: PCP Internal Medicine; Visit Provider Internal Medicine
DX: E66.01 Morbid (severe) obesity due to excess calories (principal); G47.33 Obstructive sleep apnea (adult) (pediatric); Z99.89 Dependence on other enabling machines and devices
CPT/HCPCS: 99213

== ENCOUNTER → 2023-08-30 10:27 | Outpatient (BNVA) | payer MEDICARE, SELFPAY | PROVIDERS: PCP Internal Medicine; Visit Provider Internal Medicine | DX: G47.33 Obstructive sleep apnea (adult) (pediatric) (principal); E66.01 Morbid (severe) obesity due to excess calories; Z99.89 Dependence on other enabling machines and devices; Z68.41 Body mass index [BMI] 40.0-44.9, adult | CPT/HCPCS: 99212 ==

== ENCOUNTER 2023-09-25 12:03 | Emergency (ER) | payer MEDICARE, SELFPAY ==
--- NOTE | ~2023-09-25 | XR_ITS ---
EXAMINATION: XR chest 1V CLINICAL INFORMATION: Shortness of breath COMPARISON: 07/16/2019 TECHNIQUE: Single portable frontal view. Tubes and lines: None Lungs and pleura: Mild interstitial opacification lower lobes, probably mild infiltrates no dense lobar consolidation pneumonia. Heart and mediastinum: The mediastinum is within normal limits.. Bones/soft tissue: Skeletal structures included are normal for patient's age. XR/XR chest 1V IMPRESSION: 1. Mild interstitial opacification lower lobes probably mild infiltrates. 2. No dense lobar consolidation pneumonia. 3. No pleural effusion.
[2023-09-25 12:20] VITALS: BP 150/96; PULSE 58; RESP 18; TEMP 36.6; O2SAT 96; BMI 40.6
--- NOTE | 2023-09-25 12:20 | ED_ITS ---
HPI - General Adult General Chief complaint: Nausea/Vomiting/Diarrhea Stated complaint: vomiting abd pain Time Seen by Provider: 09/25/23 13:16 Source: patient Mode of arrival: ambulatory Limitations: no limitations History of Present Illness HPI narrative: 77 yo male with history of afib, moderate aortic stenosis, obesity, MARYBETH on CPAP, BPH who presents to the ER for evaluation of watery diarrhea for the last 3 days. He reports 20 episodes last night. He was waiting for symptoms to get better at home but they didn't so he came into the ER. He reports 3 days ago his symptoms started with nausea and vomiting. He reports he now has watery diarrhea. He denies any blood in his stool and that his stool is almost clear. He denies any associated abdominal pains. He might have had a low grade fever with some chills at night. He states he is feeling weak since last night and SOB with exertion. No chest pain. No one else at home is ill. His grandchildren are visiting and no one is sick. He is unsure of any food borne causes. He denies recent travel or recent abx. He has been eating normally but things are going right through him. MD complaint: watery diarrhea Onset (ago): day(s) (3) Location: abdomen Radiation: non-radiation Severity: moderate Relieving factors: none Exacerbating factors: none Associated symptoms: nausea/vomiting, shortness of breath and weakness Treatments prior to arrival: none Related Data Home Medications Medication Instructions Recorded Confirmed coenzyme Q10 100 mg capsule 100 mg PO DAILY 05/14/20 05/31/23 (CoQ-10) [id number] C-Mn 500 1 cap PO DAILY 05/14/20 05/31/23 mg-400 mg capsule metoprolol succinate 100 mg 100 mg PO DAILY 05/14/20 05/31/23 tablet,extended release 24 hr omeprazole 40 mg capsule,delayed 40 mg PO DAILY 05/14/20 05/31/23 release hydrochlorothiazide 25 mg tablet 25 mg PO DAILY 06/10/20 05/31/23 cholecalciferol (vitamin D3) 25 25 mcg PO DAILY 10/25/21 05/31/23 mcg (1,000 unit) capsule Previous Rx's Medication Instructions Recorded tamsulosin 0.4 mg capsule (Flomax) 0.4 mg PO BEDTIME #90 caps 04/29/22 ondansetron 4 mg disintegrating 4 mg PO Q8H PRN nausea and 09/25/23 tablet vomiting #5 tabs Allergies Allergy/AdvReac Type Severity Reaction Status Date / Time No Known Allergies Allergy Verified 08/30/23 10:53 [No Known Allergies*] Review of Systems 2 Review of Systems: Yes all other systems are reviewed and are negative [facility] Past Medical History Medical History Acute bronchitis Morbid obesity PAF (paroxysmal atrial fibrillation) Arthritis Varicose vein of leg Elevated cholesterol On beta mayur at home History of blood transfusion Gutierrez esophagus MARYBETH on CPAP History of GI bleed Hypertension Heart palpitations Hx of duodenal ulcer Atrial fibrillation Surgical History History of total hip replacement Hx of toe surgery History of total right knee replacement Hx of esophagogastroduodenoscopy History of ventral hernia repair Hx of appendectomy Family History Family History Father Lung cancer Mother Cancer Social History Social History Are you a primary hospice patient care secretary to a significant other at home: No Do you presently have visiting nurse or other home services: No Alcohol intake: current Alcohol intake frequency: a few times a month Patient Tobacco Use Status: Former Tobacco user Smoked in Last 30 Days: No Use of substances other than those prescribed or required for medical reasons: No Advance Directives: No Advance Directives Information Provided: No Physical Exam ED Vital Signs: Vital Signs - 24 hr 09/25/23 12:20 09/25/23 13:12 09/25/23 15:00 Temperature 97.9 F 98.2 F Pulse Rate 58 82 75 Respiratory Rate 18 18 16 Blood Pressure 150/96 H 121/72 140/74 H Pulse Oximetry 96 95 95 Oxygen Delivery Method Room Air Room Air Room Air BMI result Body Mass Index 40.6 Appearance: Alert. Oriented X3. No acute distress. Head: normocephalic, atraumatic. Eyes: Pupils equal, round and reactive to light. ENT: Pharynx normal. No tonsillar swelling or exudate. Neck: Normal inspection. Neck supple. CVS: Normal heart rate and rhythm. Pulses normal. +systolic murmur Respiratory: No respiratory distress. Breath sounds normal. Abdomen: Obese, rotund, Soft and nontender. +BS x4 Skin: Skin warm and dry. Normal skin color. Normal skin turgor. No rashes. Extremities: No lower extremity edema. No joint swelling. Neuro/psych: Oriented X 3. No motor deficit. No sensory deficit. CN II-XII intact. Normal speech and cognition. Course Course Course Narrative: This is an RME: Additional HPI, ROS, PE not included below will be deferred to primary provider. 77 year old male hx of htn, obesity, hld, afib presents w/ nausea, vomiting, abd pain, diarrhea X 3 days. Now starting to feel weak and w/ sob. No sick contacts. 20 episodes of completly liquid diarrhea last night alone. No recent atbx or travel. Denies blood in stool or vomit, cp, fevers, chills, Plan- labs, imaging, urine, viral test Medications Administered Discontinued Medications Generic Name Dose Route Start Last Admin Trade Name Ned PRN Reason Stop Dose Admin Lactated Ringer's 1,000 mls @ 999 mls/hr 09/25/23 14:15 09/25/23 14:57 Lr IV 09/25/23 15:15 999 mls/hr .Q1H1M ESTEVAN Administration Loperamide HCl 4 mg 09/25/23 14:59 09/25/23 15:03 Loperamide Hcl 2 Mg Capsule PO 09/25/23 15:00 4 mg ONCE ONE Administration Medical Decision Making Medical Decision Making MDM Narrative: 77 yo male with history of afib, moderate aortic stenosis, obesity, MARYBETH on CPAP, BPH who presents to the ER for evaluation of watery diarrhea for the last 3 days. Abdominal exam is benign. He has no tenderness. He has no vomiting. His main complaint is ongoing watery diarrhea. No blood. Concern for likely viral etiology. Concern for dehydration. IV fluids have been ordered. Will cautiously hydrate given history of moderate . C diff came back negative. Spoke with the lab, GI panel will not return until tomorrow. Patient is tolerating p.o.. He is denying abdominal pain. Would like to go home. Advise patient most likely has a viral gastroenteritis, concern for possible norovirus. Advised of the contagious nature of this disease as well as symptomatic and supportive care. At this time comfortable discharge home. Strict return precautions were discussed. Patient expressed understanding all questions were answered. Differential Diagnosis Differential Diagnoses: The differential diagnosis associated with the presentation includes Viral gastroenteritis, C diff colitis, bacterial gastroenteritis, norovirus, dehydration, major metabolic derangement or electrolyte abnormality Admission/Observation Consideration of admission/observation: Escalation of care including admission/observation considered Multiple comorbidities with shortness of breath and weakness Lab Data MDM Lab Attestation statement: I reviewed the patient's lab results. Mild thrombocytopenia, mildly elevated BUN, no significant metabolic derangement to suggest dehydration 09/25/23 13:07 09/25/23 13:07 Labs: Lab Results 09/25/23 09/25/23 Range/Units 13:07 13:48 WBC 8.2 (4.8-10.8) X10*3/uL RBC 5.63 (4.60-5.80) X10*6/uL Hgb 17.4 (14.0-18.0) g/dl Hct 49.1 (42.0-52.0) % MCV 87.2 (80.0-98.0) fL MCH 30.9 (27.0-33.0) pg MCHC 35.4 (31.0-36.0) g/dl RDW 13.4 (11.0-16.0) % Plt Count 152 L (160-400) X10*3/uL MPV 10.9 (9.4-12.4) fL Immature Gran % (Auto) 0.2 (0.0-0.4) % Neut % (Auto) 73.7 H (45-73) % Lymph % (Auto) 11.3 L (20-40) % [place] % (Auto) 12.7 H (2-11) % Eos % (Auto) 1.7 (0-4) % Baso % (Auto) 0.4 (0-2) % Lymph # (Auto) 0.9 L (1.2-4.9) X10*3/uL [place] # (Auto) 1.0 (0.1-1.2) X10*3/uL Eos # (Auto) 0.1 (0.0-0.4) X10*3/uL Baso # (Auto) 0.0 (0.0-0.2) X10*3/uL Abs Immat Gran (auto) 0.02 (0.00-0.03) X10*3/uL Absolute Neuts (auto) 6.0 (2.0-8.3) x10*3/uL Absolute Nucleated RBC 0.000 (0.0-0.012) X10*3/uL Nucleated RBC % (auto) 0.0 (0.0-0.2) /100WBC Hold Blue Top SEE NOTE Sodium 140 (135-145) mmol/L Potassium 3.5 (3.3-5.1) mmol/L Chloride 102 (96-108) mmol/L Carbon Dioxide 29 (22-29) mmol/L Anion Gap 13 (12-20) BUN 23 H (9-16) mg/dL Creatinine 1.33 (0.5-1.4) mg/dL Estim Creat Clear Calc 60.7 Estimated GFR 52 Random Glucose 109 (60-115) mg/dL Calcium 9.3 (8.4-10.2) mg/dL Magnesium 2.0 (1.6-2.6) mg/dL Total Bilirubin 0.7 (0.0-1.0) mg/dL AST 33 (5-37) U/L ALT 45 H (0-40) U/L Alkaline Phosphatase 88 (39-117) U/L Troponin I High Sens 9.3 (<3.5-35.0) ng/L B-Natriuretic Peptide 54 (<100) pg/mL Total Protein 7.2 (6.5-8.0) g/dL Albumin 4.0 (3.5-5.0) g/dL Lipase 23 (8-78) U/L Urine Color Dark Yellow Urine Appearance Clear Urine pH 6.0 (5.0-9.0) Ur Specific Carr 1.025 (1.005-1.025) Urine Protein 30 (1+) H (Neg-Trace) mg/dL Urine Glucose (UA) Negative (Negative) mg/dL Urine Ketones Trace (Negative) mg/dL Urine Blood Trace H (Negative) Urine Nitrite Negative (Negative) Ur Leukocyte Esterase Trace H (Negative) Urine RBC 0-2 (0-2) /HPF Urine WBC 0-5 (0-5) /HPF Ur Squamous Epith Cells 0-2 (0-2) /HPF Urine Bacteria None Seen (None Seen) Hyaline Casts 0-2 (0-2) /LPF C. difficile Tox B Gene NEGATIVE (Negative) COVID-19 (MALACHI) Negative (Negative) COVID-19 Clin Com See Note Influenza Type A (JAISON) Negative (Negative) Influenza Type B (JAISON) Negative (Negative) Influenza A & B Note See Note Independent Interpretation I performed an independent interpretation of an: EKG and Plain X-Ray Interpretation: Chest x-ray without focal infiltration to suggest pneumonia agree with radiologist read EKG with normal sinus rhythm, ventricular rate 76 beats per minute, normal QTC, normal HI interval, no ST segment elevations or depressions Radiology Impression Discussion of test interpretation with radiology: I have reviewed the radiologist's reading. Radiologist Impression: XR/XR chest 1V IMPRESSION: 1. Mild interstitial opacification lower lobes probably mild infiltrates. 2. No dense lobar consolidation pneumonia. 3. No pleural effusion. External Record Review External record reviewed: Outpatient record, Prior outpatient labs and Prior outpatient radiology Prescription Management I considered prescription management with: Antibiotic Chronic Conditions Patient?s care impacted by: Other (AFib, obesity) Critical Care Time Critical Care Time Critical Care Time: No Discharge Plan Discharge Clinical Impression: Gastroenteritis Patient Disposition: Home, Self-Care Instructions: Gastroenteritis (DC) Additional Instructions: You lab workup today was unremarkable. Your urine test was negative for infection You most likely have a viral GI bug also known as gastroenteritis - most likely Norovirus. Treatment is supportive care, symptoms usually resolve on their own in 48-72 hours. Recommend rest and plenty of oral hydration. Stick to a bland diet like soup and toast while you are not feeling well. Take the prescribed medication as needed for nausea. Recommend over the counter Pepto Bismol or Imodium for upset stomach and diarrhea. Follow up with your doctor as needed. If you develop new or worsening symptoms call 911 or come back to the ER for further evaluation. Prescriptions: New ondansetron 4 mg tablet,disintegrating 4 mg PO Q8H PRN (Reason: nausea and vomiting) Qty: 5 0RF No Action metoprolol succinate 100 mg Tablet Extended Release 24 Hr 100 mg PO DAILY omeprazole 40 mg Capsule,Delayed Release(Dr/Ec) 40 mg PO DAILY coenzyme Q10 [CoQ-10] 100 mg Capsule 100 mg PO DAILY [id number] C-Mn 500-400 mg Capsule 1 cap PO DAILY Hold Instructions: Resume on 05/28/20. Basically an Nsaid none for 7 days cholecalciferol (vitamin D3) 25 mcg (1,000 unit) capsule 25 mcg PO DAILY hydrochlorothiazide 25 mg tablet 25 mg PO DAILY tamsulosin [Flomax] 0.4 mg capsule 0.4 mg PO BEDTIME Qty: 90 0RF Rx Instructions: stop and call MD for persistent dizziness Referrals: Chris Hardy DO [Primary Care Provider] -
--- NOTE | 2023-09-25 12:22 | ECG_ITS ---
Test Reason : abd pain Blood Pressure : / mmHG Vent. Rate : 076 BPM Atrial Rate : 076 BPM P-R Int : 176 ms QRS Dur : 100 ms QT Int : 396 ms P-R-T Axes : 083 -42 017 degrees QTc Int : 445 ms Sinus rhythm with Premature atrial complexes Left axis deviation Pulmonary disease pattern Abnormal ECG When compared with ECG of 04-FEB-2023 15:22, Previous ECG has undetermined rhythm, needs review Referred By: Sumeet Viera Electronically Signed By:Damon Rodriguez
[2023-09-25 13:12] VITALS: BP 121/72; PULSE 82; RESP 18; TEMP 36.8; O2SAT 95
[2023-09-25 13:12] LABS: MANUAL DIFF FLAG NO
[2023-09-25 13:14] LABS: Basophils Percent Auto 0.4 % (0-2); Eosinophils Absolute Auto 0.1 X10*3/uL (0.0-0.4); Eosinophils Percent Auto 1.7 % (0-4); Hematocrit 49.1 % (42.0-52.0); Hemoglobin 17.4 g/dl (14.0-18.0); Imm Gran Abs Auto 0.02 X10*3/uL (0.00-0.03); Imm Gran Pct Auto 0.2 % (0.0-0.4); Lymphocytes Absolute Auto 0.9 X10*3/uL (1.2-4.9); Lymphocytes Percent Auto 11.3 % (20-40); Mean Corpuscular HGB Conc 35.4 g/dl (31.0-36.0); Mean Corpuscular Hemoglobin 30.9 pg (27.0-33.0); Mean Corpuscular Volume 87.2 fL (80.0-98.0); Mean Platelet Volume 10.9 fL (9.4-12.4); Monocytes Percent Auto 12.7 % (2-11); Neutrophils Percent Auto 73.7 % (45-73); Platelet Count 152 X10*3/uL (160-400); Red Blood Count 5.63 X10*6/uL (4.60-5.80); Red Cell Distribution Width 13.4 % (11.0-16.0); White Blood Count 8.2 X10*3/uL (4.8-10.8)
[2023-09-25 13:32] LABS: IDNOW Serial# 152EDE1D; Influenza A Negative (Negative); Influenza B2 Negative (Negative)
[2023-09-25 13:33] LABS: COVID-19 Test Negative (Negative); IDNOW Serial# 08D9AD1C
[2023-09-25 13:35] LABS: Alanine Aminotransferase 45 U/L (0-40); Alkaline Phosphatase 88 U/L (39-117); Anion Gap 13 (12-20); Aspartate Amino Transferase 33 U/L (5-37); Bilirubin Total 0.7 mg/dL (0.0-1.0); Blood Urea Nitrogen 23 mg/dL (9-16); Calcium 9.3 mg/dL (8.4-10.2); Carbon Dioxide 29 mmol/L (22-29); Chloride 102 mmol/L (96-108); Creatinine Clr Calc Pharmacy 60.7; Estimated Glomerular Filt Rate 52; Glucose Random 109 mg/dL (60-115); Lipase 23 U/L (8-78); Potassium 3.5 mmol/L (3.3-5.1); Sodium 140 mmol/L (135-145); Total Protein 7.2 g/dL (6.5-8.0)
[2023-09-25 13:41] LABS: B Type Natriuretic Peptide 54 pg/mL (<100)
[2023-09-25 13:43] LABS: Troponin-I High Sensitivity 9.3 ng/L (<3.5-35.0)
[2023-09-25 13:56] LABS: Appearance Urine Clear; Color Urine Dark Yellow; Glucose Urine UA Negative (Negative); Leukocyte Esterase Urine Trace (Negative); Nitrite Urine Negative (Negative); Specific Gravity - Urine 1.025 (1.005-1.025); UMIC TRIGGER UACC YES; Urine Blood Trace (Negative); Urine Ketones Trace mg/dL (Negative); Urine Protein 30 (1+) mg/dL (Neg-Trace)
[2023-09-25 14:00] LABS: Bacteria Urine None Seen (None Seen); Hyaline Casts Urine 0-2 /LPF (0-2); RBC Urine 0-2 /HPF (0-2); Squamous Epithelial Cell Urine 0-2 /HPF (0-2); WBC Urine 0-5 /HPF (0-5)
[2023-09-25] MEDS: Lactated Ringers 1,000 ML 999 ML IV (14:57)
[2023-09-25 15:00] VITALS: BP 140/74; PULSE 75; RESP 16; O2SAT 95
[2023-09-25 15:01] LABS: CDiff Gene PCR NEGATIVE (Negative)
[2023-09-25] MEDS: Loperamide HCl 2 MG CAPSULE 4 MG PO (15:03)
--- NOTE | 2023-09-25 15:21 | PC.NURSE ---
Patient having to frequently use the BR, requesting to go home.
[2023-09-25 15:58] VITALS: BP 153/81; PULSE 75; RESP 16; TEMP 36.8; O2SAT 96
[2023-09-26 14:49] LABS: Adenovirus F 40/41 Not Detected (Not Detect.); Astrovirus Not Detected (Not Detect.); Campylobacter Not Detected (Not Detect.); Cryptosporidium Not Detected (Not Detect.); Cyclospora cayetanensis Not Detected (Not Detect.); E. coli EAEC Not Detected (Not Detect.); E. coli ETEC Not Detected (Not Detect.); E. coli O157 Not Detected (Not Detect.); Entamoeba histolytica Not Detected (Not Detect.); Giardia lamblia Not Detected (Not Detect.); Plesiomonas shigelloides Not Detected (Not Detect.); Rotavirus A Not Detected (Not Detect.); Salmonella Not Detected (Not Detect.); Sapovirus Not Detected (Not Detect.); Shigella sp./EIEC Not Detected (Not Detect.); Vibrio Not Detected (Not Detect.); Vibrio Cholerae Not Detected (Not Detect.); Yersinia enterocolitica Not Detected (Not Detect.)
[2023-09-26 15:24] LABS: E. coli STEC Detected (Not Detect.)
== END 2023-09-25 16:00 | disposition home or self-care (01) ==
PROVIDERS: Physician Assistant; Emergency Provider Student in an Organized Health Care Education/Training Program; PCP Internal Medicine
DX: K52.9 Noninfective gastroenteritis and colitis, unspecified (principal); I10 Essential (primary) hypertension; I48.0 Paroxysmal atrial fibrillation; I35.0 Nonrheumatic aortic (valve) stenosis; Z11.52 Encounter for screening for COVID-19
CPT/HCPCS: 36415; 71045; 80053; 81001; 83690; 83735; 83880; 84484; 85025; 87493; 87502; 87507; 87635; 93005; 96360; 99284; 99285; J7120

== ENCOUNTER → 2023-09-25 12:22 | Outpatient (BNV) | payer MEDICARE, SELFPAY | PROVIDERS: Emergency Provider Student in an Organized Health Care Education/Training Program; PCP Internal Medicine; Visit Provider Internal Medicine Cardiovascular Disease | DX: R94.31 Abnormal electrocardiogram [ECG] [EKG] (principal) | CPT/HCPCS: 93010 ==

== ENCOUNTER → 2023-11-11 10:24 | Outpatient (REF) | payer MEDICARE, SELFPAY | LOC: HO.SL 10:24 | PROVIDERS: PCP Internal Medicine; Visit Provider Internal Medicine | DX: Z13.89 Encounter for screening for other disorder (principal) ==

== ENCOUNTER 2024-08-07 13:10 | Outpatient (AMB) | payer MEDICARE, SELFPAY ==
--- NOTE | 2024-08-07 13:11 | MHC.PC.OV ---
Vital Signs 08/07/24 13:18 Height 5 ft 7.25 in Weight 297 lb BMI 46.2 BP 142/70 H Blood Pressure Location Rt brachial Pulse 65 Pulse Source Pulse Oximeter Temp 97.0 F Pulse Oximetry (%) 95 Intake Visit Reasons: Right ear pain Allergies No Known Allergies [No Known Allergies*] Allergy (Verified 08/07/24 13:29) Medication List - Last Reconciled 08/07/24 by Kimmy Quintero PA-C cholecalciferol (vitamin D3) 25 mcg PO DAILY coenzyme Q10 (CoQ-10) 100 mg PO DAILY bxydsqecahe-cqchfwmts-kcd C-Mn 500-400 mg 1 cap PO DAILY hydrochlorothiazide 50 mg PO DAILY metoprolol succinate ER 100 mg PO DAILY 90 days omeprazole 40 mg PO DAILY ondansetron 4 mg PO Q8H PRN tamsulosin (Flomax) 0.4 mg PO BEDTIME HPI HPI Comments History of Present Illness Details This is a 78-year-old male with a past medical history of atrial fibrillation not on any anticoagulation who has been cardioverted in the past currently on a beta mayur, hypertension, hyperlipidemia, nonrheumatic aortic stenosis, major depressive disorder, morbid obesity and obstructive sleep apnea not currently utilizing CPAP who is presenting to the primary care office with complaints of bilateral fullness sensation of his ears. Patient reports over the past few days/week he has been hearing crackles in his bilateral ears and has been waking up congested. He is concerned he may have an infection. He is traveling to [place] soon therefore he would like to make sure he does not have any issues with his ears. He denies any recent travel, fevers, sore throat, cough or congestion, rashes, recent falls or trauma, recent airplane rides or any recent swimming or drainage from the ears, decreased hearing or any other symptoms or complaints related to this. Patient reports he is currently not using CPAP due to the mask did not fit and he needs a new machine. He reports he tried to get a new machine and a new mask over the past 1-2 years and has been unsuccessful. He has not followed up with pulmonology since 2022. Patient reports his legs have been swollen although he denies any cough, chest pain or shortness of breath, dyspnea on exertion orthopnea. He also denies any calf tenderness at this time. He is currently on hydrochlorothiazide he believes 50 mg although in our system it appears that patient is on 25 mg daily. He reports that he has been taking 50 mg daily. For the patient's atrial fibrillation he was being followed by Cardiology Dr. Warren seen him in January of 2023. Initially in 2018 patient was cardioverted back to sinus rhythm and was on anticoagulation although stopped it later on due to GI bleed and is hesitant about restarting this. Patient is currently on metoprolol 100 mg extended-release. For the patient's hyperlipidemia he is currently on multiple vitamins [id number]-[id number]. For the patient's GERD he is currently on omeprazole. For the patient's BPH he is currently on furosemide at bedtime. Otherwise patient denies any other symptoms complaints or concerns at this time. [facility] Medical History Bilateral leg edema Leg edema Hyperlipidemia Primary osteoarthritis of left knee Major depressive disorder Diverticulosis Obstructive sleep apnea on CPAP Duodenal ulcer disease Acute bronchitis Morbid obesity PAF (paroxysmal atrial fibrillation) Arthritis Varicose vein of leg Elevated cholesterol On beta mayur at home History of blood transfusion Gutierrez esophagus MARYBETH on CPAP History of GI bleed Hypertension Heart palpitations Hx of duodenal ulcer Atrial fibrillation Surgical History History of colonoscopy (~05/21/20) History of total hip replacement Hx of toe surgery History of total right knee replacement Hx of esophagogastroduodenoscopy History of ventral hernia repair Hx of appendectomy Family History Father Lung cancer Mother Cancer Social History Are you a primary plant care worker to a significant other at home: No Do you presently have visiting nurse or other home services: No Alcohol intake: current Alcohol intake frequency: a few times a month Patient Tobacco Use Status: Former Tobacco user Review of Systems Const All systems reviewed & are unremarkable except as noted in HPI and below Physical exam (Primary Care) Vital Signs: Last Vital Signs Temp 97.0 F 08/07/24 13:18 Pulse 65 08/07/24 13:18 BP 142/70 H 08/07/24 13:18 Pulse Ox 95 08/07/24 13:18 Care Plan Goal for BP management: 130/80 BMI result Body Mass Index 46.2 BMI Assessment/Plan discussion: High BMI High, discussed plan: lifestyle, weight reduction, dietary, physical activity and alcohol moderation Tobacco/Smoking Status: Tobacco use Status Patient Tobacco Use Status Former Tobacco user 08/07/24 13:12 Const Other: Appearance: Alert. Oriented X3. No acute distress. Head: Normal external exam. Normocephalic. Atraumatic. Eyes: Conjunctiva and sclera normal. Eyelids normal. ENT: MMM. Normal voice. Posterior pharynx within normal limits. Normal voice. No trismus drooling or stridor. External ear canal within normal limits no cerumen impaction noted bilaterally. Tympanic membranes bilaterally are intact pearly white with a good cone of light no signs of infection. No tenderness over the mastoid. No tenderness upon manipulation of the pinna or the tragus. Normal hearing. Neck: Normal inspection. Neck supple. FROM. No adenopathy. Thyroid Normal. No meningeal signs. No neck mass noted. CVS: Normal heart rate and rhythm. Heart sound normal. Pulses normal throughout. No murmurs/rales/gallops. Respiratory: No respiratory distress. Painless inspiration. Breath sounds normal. No wheezes/rales/rhonchi noted. Chest nontender. No crepitus is noted. No accessory muscle usage noted or decreased air movement noted. No signs of trauma. Abdomen: Soft and nontender. Nondistended. No guarding. No rigidity. Bowel sounds normal in all 4 quadrants. No distention noted. No organomegaly noted. No visible injury noted. No rebound tenderness. Back: Full range of motion noted. Skin: Skin warm and dry. Normal skin color. Normal skin turgor. No rashes/lesions/lacerations noted. Extremities: +4 pitting edema to bilateral lower extremity. No calf tenderness is noted. Extremities exhibit normal range of motion and nontender. Neuro: Oriented X 3. Moving all extremities. Normal steady gait. No focal neuro deficits noted. Vascular: + radial pulses b/l. Normal cap refill. No cyanosis noted. Coding Level of Care Code Est Pt Level 4 (81882) Complex EM visit Add On G2211 Diagnoses Atrial fibrillation I48.91 Hypertension I10 On beta mayur at home Z78.9 MARYBETH on CPAP G47.33; Z99.89 Morbid obesity E66.01 Non-rheumatic aortic stenosis I35.0 Hyperlipidemia E78.5 Bilateral leg edema R60.0 Assessment & Plan Assessment & Plan (1) Atrial fibrillation: Comment: Sees Dr Warren No OAC Code(s): I48.91 - Unspecified atrial fibrillation Category: Medical Plan: Patient being referred back to cardiology. Patient to continue metoprolol 50 mg extended release. Will switch patient from hydrochlorothiazide to Lasix 40 mg. Condition is chronic and stable continue to monitor. (2) Hypertension: Code(s): I10 - Essential (primary) hypertension Category: Medical Plan: Patient to continue metoprolol 50 mg extended release daily. Will switch from hydrochlorothiazide to Lasix 40 mg daily. Condition is chronic and stable continue to monitor. (3) On beta mayur at home: Code(s): Z78.9 - Other specified health status Category: Medical (4) MARYBETH on CPAP: Comment: H/O MARYBETH SINCE 2014 HE DOES HAVE CPAP MACHINE AND USES REGULARLY CURRENTLY DOING BETTER WITH PRESSURE OF 12 CM. HE IS USING FULLFACE MASK BUT EVEN WITH THAT HE IS HAVING SOME, AIR LEAK ALSO HAS SOME AIR LEAK THROUGH THE TUBING . Code(s): G47.33 - Obstructive sleep apnea (adult) (pediatric); Z99.89 - Dependence on other enabling machines and devices Category: Medical Plan: Patient instructed to reach back out to pulmonology and to the pharmacy who sent in his CPAP machine and to restart CPAP machine. Condition is chronic and stable continue to monitor. (5) Morbid obesity: Comment: PATIENT REMAINS GROSSLY OBESE, WHICH IS THE UNDERLYING CAUSE OF SLEEP APNEA, HE CLAIMS TO USE CPAP EVERY NIGHT HOWEVER HE IS HAVING SOME ISSUES, WITH AIR LEAK. Code(s): E66.01 - Morbid (severe) obesity due to excess calories Category: Medical Plan: Patient to improve his diet and increase his exercise regimen. Condition is chronic and stable continue to monitor. (6) Non-rheumatic aortic stenosis: Code(s): I35.0 - Nonrheumatic aortic (valve) stenosis Category: Medical Plan: Condition is chronic and stable continue to monitor. (7) Hyperlipidemia: Code(s): E78.5 - Hyperlipidemia, unspecified Category: Medical Plan: Patient currently on coenzyme and multiple other multivitamins. Condition is chronic and stable continue to monitor. (8) Bilateral leg edema: Code(s): R60.0 - Localized edema Category: Medical Plan: Will order venous duplex ultrasound of bilateral lower extremities to evaluate possible DVTs, basic blood work including BNP and start the patient on Lasix 40 mg daily. Condition is chronic and stable continue to monitor. Plan - for the patient's pedal edema ultrasound of bilateral lower extremities will be ordered along with basic blood work - referral back to Cardiology for further evaluation management of chronic condition - patient instructed to call back pulmonology and to follow back up with them into inquire about CPAP machine - patient will be switched from hydrochlorothiazide to Lasix 40 mg for pedal edema - patient to return in 1 month for ongoing evaluation management Orders: Orders Magnesium 08/07/24 - Encounter for general adult medical examination without abnormal findings Hemoglobin A1c 08/07/24. - Encounter for general adult medical examination without abnormal findings Liver Panel 08/07/24. - Encounter for general adult medical examination without abnormal findings Vitamin D 25-OH Total 08/07/24. - Encounter for general adult medical examination without abnormal findings C Reactive Protein 08/07/24. - Encounter for general adult medical examination without abnormal findings Complete Blood Count Auto Diff 08/07/24. - Encounter for general adult medical examination without abnormal findings Comprehensive [place]. Panel Fast 08/07/24. - Encounter for general adult medical examination without abnormal findings Lipid Panel 08/07/24. - Encounter for general adult medical examination without abnormal findings TSH reflex Free T4 08/07/24. - Encounter for general adult medical examination without abnormal findings Vitamin B12 and Folate 08/07/24 Z. - Encounter for general adult medical examination without abnormal findings B Type Natriuretic Peptide 08/07/24 R60.0 - Localized edema US venous duplex LE BI 08/07/24 R60.0 - Localized edema Referrals Cardiology Referral E66.01 - Morbid (severe) obesity due to excess calories, E78.5 - Hyperlipidemia, unspecified, G47.33 - Obstructive sleep apnea (adult) (pediatric), I10 - Essential (primary) hypertension, I35.0 - Nonrheumatic aortic (valve) stenosis, I48.91 - Unspecified atrial fibrillation, R60.0 - Localized edema, Z78.9 - Other specified health status, Z99.89 - Dependence on other enabling machines and devices Medications: New furosemide (Lasix) 40 mg PO DAILY 90 tabs 1RF loratadine-pseudoephedrine 5-120 mg ER (Claritin-D 12 Hour) 1 tab PO Q12H 20 tabs 0RF
[2024-08-07 13:18] VITALS: BP 142/70; PULSE 65; TEMP 36.1; O2SAT 95; BMI 46.2
== END 2024-08-07 13:43 | disposition home or self-care (01) ==
LOC: HO.HMCSH 13:10
PROVIDERS: PCP Internal Medicine; Visit Provider Physician Assistant Medical
DX: I48.91 Unspecified atrial fibrillation (principal); I10 Essential (primary) hypertension; Z78.9 Other specified health status; G47.33 Obstructive sleep apnea (adult) (pediatric); Z99.89 Dependence on other enabling machines and devices; E66.01 Morbid (severe) obesity due to excess calories; I35.0 Nonrheumatic aortic (valve) stenosis; E78.5 Hyperlipidemia, unspecified; R60.0 Localized edema

== ENCOUNTER → 2024-08-07 13:10 | Outpatient (BNVA) | payer MEDICARE, SELFPAY | PROVIDERS: PCP Internal Medicine; Visit Provider Physician Assistant Medical | DX: I48.91 Unspecified atrial fibrillation (principal); I10 Essential (primary) hypertension; G47.33 Obstructive sleep apnea (adult) (pediatric); E66.01 Morbid (severe) obesity due to excess calories; I35.0 Nonrheumatic aortic (valve) stenosis; E78.5 Hyperlipidemia, unspecified; R60.0 Localized edema; Z78.9 Other specified health status; Z99.89 Dependence on other enabling machines and devices | CPT/HCPCS: 99212 ==

== ENCOUNTER 2024-08-30 09:57 | Outpatient (AMB) | payer MEDICARE, SELFPAY ==
--- NOTE | 2024-08-30 10:05 | A.OFFPC_ITS ---
Vital Signs 08/30/24 10:19 Height 5 ft 7.25 in Weight 299 lb BMI 46.5 BP 152/72 H Blood Pressure Location Rt brachial Pulse 56 Pulse Source Pulse Oximeter Temp 97.0 F Pulse Oximetry (%) 97 Oxygen Delivery Method Simple Mask Intake Visit Reasons: physical Intake Note: shrtness of breath, lower back pain,sleep apnea, shoulder pain in both,bone spur in right toe again, achy joints, depression, weight, edema in both legs, reading is funzzy Allergies No Known Allergies [No Known Allergies*] Allergy (Verified 08/30/24 10:09) [facility] Medical History Bilateral leg edema Leg edema Hyperlipidemia Primary osteoarthritis of left knee Major depressive disorder Diverticulosis Obstructive sleep apnea on CPAP Duodenal ulcer disease Acute bronchitis Morbid obesity PAF (paroxysmal atrial fibrillation) Arthritis Varicose vein of leg Elevated cholesterol On beta mayur at home History of blood transfusion Gutierrez esophagus MARYBETH on CPAP History of GI bleed Hypertension Heart palpitations Hx of duodenal ulcer Atrial fibrillation Surgical History History of colonoscopy (~05/21/20) History of total hip replacement Hx of toe surgery History of total right knee replacement Hx of esophagogastroduodenoscopy History of ventral hernia repair Hx of appendectomy Family History Father Lung cancer Mother Cancer Social History Are you a primary career services manager to a significant other at home: No Do you presently have visiting nurse or other home services: No Alcohol intake: current Alcohol intake frequency: a few times a month Patient Tobacco Use Status: Former Tobacco user Physical exam (Primary Care) Tobacco/Smoking Status: Tobacco use Status Patient Tobacco Use Status Former Tobacco user 08/07/24 13:12 Coding Level of Care Code Est Pt Level 4 (04456) Est Pt Prev Care >65y(29194) Diagnoses MARYBETH on CPAP G47.33; Z99.89 Strain of rotator cuff of both shoulders S46.011A; S46.012A Atrial fibrillation I48.91 Assessment & Plan Assessment & Plan (1) MARYBETH on CPAP: Comment: H/O MARYBETH SINCE 2015 HE DOES HAVE CPAP MACHINE AND USES REGULARLY CURRENTLY DOING BETTER WITH PRESSURE OF 12 CM. HE IS USING FULLFACE MASK BUT EVEN WITH THAT HE IS HAVING SOME, AIR LEAK ALSO HAS SOME AIR LEAK THROUGH THE TUBING . Code(s): G47.33 - Obstructive sleep apnea (adult) (pediatric); Z99.89 - Dependence on other enabling machines and devices Category: Medical Plan: Sleep study appt requested. (2) Strain of rotator cuff of both shoulders: Code(s): S46.011A - Strain of muscle(s) and tendon(s) of the rotator cuff of right shoulder, initial encounter; S46.012A - Strain of muscle(s) and tendon(s) of the rotator cuff of left shoulder, initial encounter Plan: Physical therapy has been ordered. Patient should increase his exercise regimen (3) Atrial fibrillation: Comment: Sees Dr Warren No OAC Code(s): I48.91 - Unspecified atrial fibrillation Category: Medical Plan: In Sinus rhythm. Not on anticoagulants. Echo has been ordered to assess LVF. Plan History of Present Illness The patient is a 78-year-old male presenting for a comprehensive physical examination. In addition he would like to discuss his various medical problems. He has a significant history of obesity with difficulty in losing weight, impacted by multiple joint surgeries including knee and hip operations resulting in decreased mobility and increased joint pain. The weight management challenge is further complicated by the patient's alcohol consumption habits. He also has a self admitted addiction to sugar He has been diagnosed with sleep apnea and is experiencing challenges in securing appropriate equipment due to logistical issues related to sleep studies and equipment compatibility. His respiratory health is further questioned due to recent shortness of breath episodes, necessitating a closer examination of cardiovascular function. The patient's psychiatric health includes unmanaged depression following previous treatment attempts with medication. Current symptoms include peripheral edema, with likely implications for cardiovascular and renal assessments. The patient's medical history is noteworthy for atrial fibrillation, for which he has been treated with cardioversion. His hypertension is managed with metoprolol and hydrochlorothiazide, although recent shortness of breath and musculoskeletal aches pose new management challenges. Social History - Patient is a musician and performs regularly, often traveling for work. - Lives with his who is involved in his care. - Engages in moderate physical activity such as playing pickleball. - Reports dietary changes including reduced carbohydrate and sugar intake. - Continues to consume alcohol nightly. Review of Systems - Musculoskeletal: Reports shoulder pain, reduced ability to throw or exert significant strength. - Cardiovascular: Denies current chest pain but has recent shortness of breath. - Psychiatric: Reports current depression, untreated with medications. Physical Exam General: Appearance normal, both eyes and all related structures Nutritional Appearance: Overweight Orientation/consciousness: Patient oriented x3 Limitations: No limitations Head: Normal to inspection Neck: Normal visual inspection Chest: Normal palpation of entire chest wall Respiratory: Normal respiratory effort Neurology: Patient oriented x3 Ext: Pitting edema Heart: S1 S2, systolic murmur best heard in the apical area. Results Plan The patient will receive nutritional counseling to assist in weight management, and efforts to reduce alcohol consumption are advocated. Physical therapy is initiated for shoulder pain. A sleep study will be conducted through neurology services to address his sleep apnea. An echocardiogram is ordered to monitor cardiac function due to dyspnea concerns. Lasix will replace hydrochlorothiazide, with monitoring of diuresis and gastrointestinal tolerance. Metoprolol therapy is maintained for arrhythmia control. Assessment of peripheral edema will guide diuretic management adjustments. Patient was informed and verbally consented to the use of an ambient scribe for clinic note documentation during this visit. Discussion Notes I discussed with the patient the critical need to address obesity through lifestyle changes, emphasizing dietary modifications and gradual alcohol reduction. The risks and benefits of switching from hydrochlorothiazide to Lasix were covered, particularly regarding the monitoring of adverse gastrointestinal effects. I reviewed the importance of treating sleep apnea and provided referral options for a new sleep study to ensure compliance with CPAP use. The need for further cardiac evaluation through an echocardiogram was explained in light of new symptoms of shortness of breath. The potential benefits of physical therapy for shoulder pain were also reviewed. Patient Instructions - Continue with dietary modifications, emphasizing a reduction in carbohydrates and sugars. - Gradually reduce alcohol intake. - Engage in physical therapy as prescribed. - Follow up with the referral for a sleep study. - Monitor for any adverse effects while transitioning from hydrochlorothiazide to Lasix. - Schedule bloodwork as ordered. - Attend echocardiogram appointment when scheduled. - Return for a follow-up appointment in one month. Orders: Orders PT Evaluation and Treatment Today S46.011A - Strain of muscle(s) and tendon(s) of the rotator cuff of right shoulder, initial encounter, S46.012A - Strain of muscle(s) and tendon(s) of the rotator cuff of left shoulder, initial encounter [place] echo transthoracic complete Today I48.91 - Unspecified atrial fibrillation Referrals Sleep Medicine Referral G47.33 - Obstructive sleep apnea (adult) (pediatric), Z99.89 - Dependence on other enabling machines and devices
[2024-08-30 10:19] VITALS: BP 152/72; PULSE 56; TEMP 36.1; O2SAT 97; BMI 46.5
--- OUTSIDE RECORDS SUMMARY | 2024-08-30 11:43 | XMS_ITS | Clinical Summary ---
Author Organization [facility] [place] [address] Care Team Providers Care Tape Coater Name Role Phone Chris Alegria MD Primary Care Provider [phone] Allergies No known active allergies Medications Medication Sig Dispensed Refills Start Date End Date Status INDOMETHACIN ORAL 07/20/2001 Active Social History Tobacco Use Types Packs/Day Years Used Date Smoking Tobacco: Never Assessed Sex and Gender Information Value Date Recorded Sex Assigned at Not on file Gender Identity Not on file Sexual Orientation Not on file Plan of Treatment Health Maintenance Due Date Last Done Comments Hepatitis C Screening 12/14/1963 Tetanus/Diphtheria/Pertussis Vaccines (1 - Tdap) 12/13 Pneumoccocal Vaccine: 50+ (1 of 1 - PCV) 12/14/1995 Zoster vaccine (1 of 2) 12/14/1995 Advance Directive 2000 RSV Vaccine (1 - 1-dose 75+ series) 2020 Covid-19 Vaccine (1 - 2023-25 season) 2024 Influenza (Flu) vaccine (1 o f 1 - Influenza standard series) 02/27/2024 Care Teams Tape Coater Relationship Specialty Start Date End Date Chris Alegria MD [address] [place] [address] [facility] - General 05/20/10
--- OUTSIDE RECORDS SUMMARY | 2024-08-30 11:43 | XMS_ITS ---
Author Organization [facility] Address [address] [place] [address] Care Team Providers Care Disposal Man Name Role Phone Chris Hardy MD Primary Care Provider Unavail able Laura Mosley Unavailable [phone] REASON FOR VISIT Cx 12/22/23 CUSTOMER SERVICE CASHIER appt Encounters Encounter Location Date [facility] [address] [address] 12/20/2023 Laura Mosley Plan Of Treatment No Information Progress Notes * Bravo REALDOB: 6 (78 yo M)Acc No.[id number]:12/20/2023 Patient:?Bravo Real :1945???Age:78 Y???Sex:Male Address:[address] [place] [id number] * true * Date:? Generated for Josei misti/Huma/eTransmitting on:?08/30/2024 11:43 AM EST
--- OUTSIDE RECORDS SUMMARY | 2024-08-30 11:43 | XMS_ITS | Patient Health Record ---
Author Organization [facility] Address [address] [place] [address] Care Team Providers Care Crawler Tractor Operator Name Role Phone Chris Hardy MD Primary Care Provider Unavail able Laura Mosley Unavailable [phone] Reason For Referral No Information Encounters Encounter Location Date Provider Diagnosis [facility] [address] [facility] [address] [place] [address] 12/20/2023 Laura Mosley Plan Of Treatment No Information Insurance Providers Payer Name Payer Address Payer Phone Subscriber Number Group Number Insured Name Patient Relationship to Insured Coverage Start Date Coverage End Date [facility] 65 Medicare Preferred [address] [place] [address] [id number] Bravo Moore Self - patient is the insured
--- OUTSIDE RECORDS SUMMARY | 2024-08-30 11:44 | XMS_ITS ---
Author Organization [facility] Address [address] [place] [address] Care Team Providers Care Production Control Coordinator Name Role Phone Hayley SYLVESTER, Chris Primary Care Provider Unavail able Laura Mosley Unavailable [phone] Encounters Encounter Location Date Provider Diagnosis [facility] [address] [place] [address] 12/22/2023 Laura Mosley Plan Of Treatment No Information Progress Notes * Bravo MOOREDOB: 6 (78 yo M)Acc No.[id number]:12/22/2023 Progress Notes Patient:?Bravo MOORE Provider:?Laura Mosley DPM :1945???Age:78 Y???Sex:Male Eric e:12/22/2023 Address:[address] [place], [place] [id number] Pcp:Chris Hardy MD Subjective: * Chief Complaints: * ??? * Medical History:? Objective: * Vitals:? Assessment: Plan: * Treatment: * Images: * The named appointment provid er may or may not be the originator of this progress note, and it is not deemed complete until electronically signed by the appointment provider. Sign off status: Pending * Provider:?Laura Mosley DPM Date:? Generated for Maria Fernanda chappell/Huma/eTransmitting on:?08/30/2024 11:43 AM EST
--- OUTSIDE RECORDS SUMMARY | 2024-08-30 11:44 | XMS_ITS | Clinical Summary ---
Author Organization [facility] ity Address [address] [place] [address] Care Team Providers Care Loom Fixer Helper Name Role Phone Unavailable Primary Care Provider Unavailabl e Social History Tobacco Use Types Packs/Day Years Used Date Smoking Tobacco: Never Assessed Sex and Gender Information Value Date Recorded Sex Assigned at Not on file Legal Sex Male 9:17 PM EST Gender Identity Not on file Sexual Orientation Not on file Plan of Treatment Health Maintenance Due Date Last Done Comments DTaP,Tdap,and Td Vaccines (1 - Tdap) 1964 Pneumococcal Vaccine: 50+ Ye ars (1 of 1 - PCV) 12/14/1995 Zoster Vaccines (1 of 2) 12/14/1995 RSV Immunization Patients 60 + Years Old (1 - 1-dose 75+ series) 2020 COVID-19 Vaccine ( - 2023-2 5 season) 2024 Influenza Vaccine (#1) 2024 HIB Vaccines Aged Out No longer eligi ble based on patient's age to complete this topic HPV Vaccines Aged Out No longer eligi ble based on patient's age to complete this topic Hepatitis A Vaccines Aged Out No long er eligible based on patient's age to complete this topic Hepatitis B Vaccines Aged Out No long er eligible based on patient's age to complete this topic IPV Vaccines Aged Out No longer eligi ble based on patient's age to complete this topic MMR Vaccines Aged Out No longer eligi ble based on patient's age to complete this topic Meningococcal ACWY Vaccine Aged Out N o longer eligible based on patient's age to complete this topic Meningococcal B Vacine Aged Out No lo nger eligible based on patient's age to complete this topic RSV Immunization Patients Un celso 20 months Aged Out No longer eligible b ased on patient's age to complete this topic Varicella Vaccines Aged Out No longer eligible based on patient's age to complete this topic
--- OUTSIDE RECORDS SUMMARY | 2024-08-30 11:44 | XMS_ITS | Clinical Summary ---
Author Organization [facility] Address [address] [place] [address] Care Team Providers Care Enroute Controller Name Role Phone Ulices Elias Primary Care Provider Unav ailable Medications Furosemide (Lasix) 20 MG tablet Lasix (20MG 1 Oral daily) Active -Hx Entry 0 0 5 Active Atenolol (TENORMIN) 25 MG tablet Atenolol (25MG 1 Oral daily) Active -Hx Entry 0 0 5 Active LORazepam (ATIVAN) 1 MG tablet LORazepam (1MG 1 Oral at bedtime) Active -Hx Entry 0 0 5 Active Multiple Vitamins-Minera ls (Vitamin D3 Complete) Tab Vitamin D3 Complete ( 1 Oral daily) Active -Hx Entry 0 0 5 Active Active Problems Problem Noted Date Diagnosed Date Sleep related hypoventilation or hypoxemia 12/17 Overview (08/01/2023): Description: Sleep Medicine Migration - Source Name: Sleep-related hypoxemia; Notes: 11/07/14 PSG: Saturation dharmesh = 79%; low during 8.5% of sleep (weight = 281). 04/11/15 titration PSG: Controlled on CPAP (weight = 287). Obstructive sleep apnea, adult 12/17/2018 Overview (08/01/2023): Description: Sleep Medicine Migration - Source Name: Obstructive sleep apnea, adult; Notes: 11/07/14: Severe: AHI = 55 in general; 77 supine; 85 in REM (weight = 281). 02/27/15: Nocturia improved with CPAP initiation. Hypertension 12/17/2018 Overview (08/01/2023): Description: Sleep Medicine Migration - Source Name: Hypertension Obesity, morbid, BMI 40.0-49.9 12/17/2018 Overview (08/01/2023): Description: Sleep Medicine Migration - Source Name: Obesity, morbid, BMI 40.0- 49.9; Notes: A rankin risk factor for MARYBETH. Hypoxemia 12/17/2018 Overview (08/01/2023): Description: Sleep Medicine Migration - Source Name: Hypoxemia Depression 12/17/2018 Overview (08/01/2023): Description: Sleep Medicine Migration - Source Name: Depression; Notes: Off and on through life. 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 Hypersomnia, organic 12/17/2018 Overview (08/01/2023): Description: Sleep Medicine Migration - Source Name: Hypersomnia, organic; Notes: 11/29/14: Naps daily in the afternoon for 30 to 45 minutes; dozes off 5 evenings a week, sleeping 1.5 hours or longer. Social History Tobacco Use Types Packs/Day Years Used Date Smoking Tobacco: Never Assessed Comments:Smoking Status:Toba medical accountant use:Sleep Medicine Migration - Source Name: Tobacco use; Notes: Former smoker Sex and Gender Information Value Date Recorded Sex Assigned at Not on file Legal Sex Male 5:30 PM EDT Gender Identity Not on file Sexual Orientation Not on file Last Filed Vital Signs Vital Sign Reading Time Taken Comments Blood Pressure 140/90 05/09/2015 11:09 AM EST LUE/Sitting LUE/Sitting Pulse - - Temperature - - Respiratory Rate 12 05/09/2015 11:0 8 AM EST Oxygen Saturation - - Inhaled Oxygen Concentration - - Weight 132 kg (291 lb 0.2 oz) 05/09/2015 11:08 AM EST Height 174.6 cm (5' 8.75 ) 05/09/2015 1 1:08 AM EST Body Mass Index 43.29 05/09/2015 11:08 AM EST Plan of Treatment Health Maintenance Due Date Last Done Comments Hepatitis C Screening 1945 DTaP/Tdap/Td (1 - Tdap) 12/14/1963 Pneumococcal 50+ years (1 of 1 - PCV) 12/14/1995 Zoster (Shingrix) (1 of 2) 12/14/1995 RSV (1 - 1-dose 75+ series) 2020 COVID-19 Vaccine ( - 2023-2 5 season) 2024 Influenza (#1) 2024 HPV Vaccine Aged Out No longer eligi ble based on patient's age to complete this topic Hep A Aged Out No longer eligi ble based on patient's age to complete this topic Hep B Aged Out No longer eligi ble based on patient's age to complete this topic Hib Aged Out No longer eligi ble based on patient's age to complete this topic Meningococcal ACWY Aged Out No longer eligible based on patient's age to complete this topic Zoster (Zostavax) Discontinued Care Teams Enroute Controller Relationship Specialty Start Date End Date Ulices Elias PCP - General 02/01/23
== END 2024-08-30 10:46 | disposition home or self-care (01) ==
LOC: HO.HMCSH 09:57
PROVIDERS: PCP Internal Medicine; Visit Provider Internal Medicine
DX: Z00.00 Encounter for general adult medical examination without abnormal findings (principal); G47.33 Obstructive sleep apnea (adult) (pediatric); I48.91 Unspecified atrial fibrillation; S46.012A Strain of muscle(s) and tendon(s) of the rotator cuff of left shoulder, initial encounter; Z99.89 Dependence on other enabling machines and devices; S46.011A Strain of muscle(s) and tendon(s) of the rotator cuff of right shoulder, initial encounter

== ENCOUNTER → 2024-08-30 09:57 | Outpatient (BNVA) | payer MEDICARE, SELFPAY | PROVIDERS: PCP Internal Medicine; Visit Provider Internal Medicine | DX: G47.33 Obstructive sleep apnea (adult) (pediatric) (principal); Z99.89 Dependence on other enabling machines and devices; I48.91 Unspecified atrial fibrillation; S46.011D Strain of muscle(s) and tendon(s) of the rotator cuff of right shoulder, subsequent encounter; S46.012D Strain of muscle(s) and tendon(s) of the rotator cuff of left shoulder, subsequent encounter | CPT/HCPCS: 99212; 99397 ==

== ENCOUNTER 2024-09-05 08:06 | Outpatient (REF) | payer MEDICARE, SELFPAY ==
--- OUTSIDE RECORDS SUMMARY | 2024-09-05 08:35 | XMS_ITS | Clinical Summary ---
Author Organization [facility] ity Address [address] [place] [address] Care Team Providers Care Asbestos Brake Lining Finisher Name Role Phone Unavailable Primary Care Provider [...]
--- OUTSIDE RECORDS SUMMARY | 2024-09-05 08:35 | XMS_ITS | Clinical Summary ---
Author Organization [place] [address] Care Team Providers Care Panelboard Operator Name Role Phone Chris Alegria MD Primary Care Provider [phone] Allergies No known active allergies Medications Medication [...] - Influenza standard series) 02/27/2024 Care Teams Panelboard Operator Relationship Specialty Start Date End Date Chris Alegria MD [address] [place] [address] [facility] - General 05/20/10
--- OUTSIDE RECORDS SUMMARY | 2024-09-05 08:35 | XMS_ITS | Patient Health Record ---
Author Organization [facility] Address [address] [place] [address] Care Team Providers Care Icd 9 Coder Name Role Phone Chris Hardy MD Primary Care Provider Unavail able Laura Mosley Unavailable [phone] Reason For Referral No Information Encounters Encounter Location Date Provider Diagnosis [facility] [place] [address] [facility] [address] [place] [address] 12/20/2023 Laura Mosley Plan Of Treatment No Information Insurance Providers Payer Name Payer Address Payer Phone Subscriber Number Group Number Insured Name Patient Relationship to Insured Coverage Start Date Coverage End Date [facility] 65 Medicare Preferred [address] [place] [address] [phone] [id number] Bravo Moore Self - patient is the insured
--- OUTSIDE RECORDS SUMMARY | 2024-09-05 08:35 | XMS_ITS ---
Author Organization [facility] Address [address] [place] [address] Care Team Providers Care Picking Machine Operator Name Role Phone Hayley SYLVESTER, Chris Primary Care Provider Unavail able Laura Mosley Unavailable [phone] Encounters Encounter Location Date Provider Diagnosis [facility] [address] [place] [address] 12/22/2023 Laura Mosley Plan Of Treatment No Information Progress Notes * Bravo MOOREDOB: [birth year] (78 yo M)Acc No.[id number]:12/22/2023 Progress Notes Patient:?Bravo MOORE Provider:?Laura Mosley DPM :1945???Age:78 Y???Sex:Male Eric e:12/22/2023 Address:[address] [place], [place] [id number] Pcp:Chris Hardy MD Subjective: * Chief Complaints: * ??? * Medical History:? Objective: * Vitals:? Assessment: Plan: * Treatment: * Images: * The named appointment provid er may or may not be the originator of this progress note, and it is not deemed complete until electronically signed by the appointment provider. Sign off status: Pending * Provider:?Larua Mosley DPM Date:? Generated for Maria Fernanda chappell/Huma/eTransmitting on:?09/05/2024 08:34 AM EDT
--- OUTSIDE RECORDS SUMMARY | 2024-09-05 08:35 | XMS_ITS ---
Author Organization [facility] Address [address] [place] [address] Care Team Providers Care Boiler Technician Name Role Phone Chris Hardy MD Primary Care Provider Unavail able Laura Mosley Unavailable [phone] REASON FOR VISIT Cx 12/22/23 HOG SAWYER appt Encounters Encounter Location Date [facility] [address] [address] 12/20/2023 Laura Mosley Plan Of Treatment No Information Progress Notes * Bravo REALDOB: [birth year] (78 yo M)Acc No.[id number]:12/20/2023 Patient:?Bravo Real :1945???Age:78 Y???Sex:Male Address:[address] [place] [address] * true * Date:? Generated for Printi ng/Fasiag/eTransmitting on:?09/05/2024 08:34 AM EDT
--- OUTSIDE RECORDS SUMMARY | 2024-09-05 08:35 | XMS_ITS | Clinical Summary ---
Author Organization [facility] Address [address] [place] [address] Care Team Providers Care Gold Buyer Name Role Phone Ulices Elias Primary Care [...] 49.9; Notes: A rankin risk factor for AMRYBETH. Hypoxemia 12/17/2018 Overview (08/01/2023): Description: Sleep Medicine [...] Date Smoking Tobacco: Never Assessed Comments:Smoking Status:Toba account assistant use:Sleep Medicine Migration - Source Name: Tobacco [...] this topic Zoster (Zostavax) Discontinued Care Teams Gold Buyer Relationship Specialty Start Date End Date Ulices Elias PCP - General 02/01/23
[2024-09-05 10:25] LABS: MANUAL DIFF FLAG NO
[2024-09-05 10:30] LABS: Basophils Percent Auto 0.4 % (0-2); Eosinophils Absolute Auto 0.3 X10*3/uL (0.0-0.4); Eosinophils Percent Auto 3.3 % (0-4); Hematocrit 49.3 % (42.0-52.0); Hemoglobin 16.7 g/dl (14.0-18.0); Imm Gran Abs Auto 0.05 X10*3/uL (0.00-0.03); Imm Gran Pct Auto 0.6 % (0.0-0.4); Lymphocytes Absolute Auto 1.1 X10*3/uL (1.2-4.9); Lymphocytes Percent Auto 13.9 % (20-40); Mean Corpuscular HGB Conc 33.9 g/dl (31.0-36.0); Mean Corpuscular Volume 88.7 fL (80.0-98.0); Mean Platelet Volume 11.5 fL (9.4-12.4); Monocytes Absolute Auto 0.9 X10*3/uL (0.1-1.2); Monocytes Percent Auto 11.4 % (2-11); Neutrophils Absolute Auto 5.5 x10*3/uL (2.0-8.3); Neutrophils Percent Auto 70.4 % (45-73); Platelet Count 192 X10*3/uL (160-400); Red Blood Count 5.56 X10*6/uL (4.60-5.80); Red Cell Distribution Width 13.5 % (11.0-16.0); White Blood Count 7.8 X10*3/uL (4.8-10.8)
[2024-09-05 10:44] LABS: Estimated Average Glucose 111 mg/dL; Hemoglobin A1c % 5.5 % (<6.0)
[2024-09-05 11:07] LABS: Alanine Aminotransferase 52 U/L (0-40); Albumin Level 4.4 g/dL (3.5-5.0); Alkaline Phosphatase 96 U/L (39-117); Anion Gap 11 (12-20); Aspartate Amino Transferase 39 U/L (5-37); Bilirubin Direct 0.2 mg/dL (0.0-0.5); Bilirubin Total 0.7 mg/dL (0.0-1.0); Blood Urea Nitrogen 27 mg/dL (9-16); Calcium 10.2 mg/dL (8.4-10.2); Carbon Dioxide 33 mmol/L (22-29); Chloride 103 mmol/L (96-108); Cholesterol 201 mg/dL (<200); Estimated Glomerular Filt Rate 47; Glucose Fasting 115 mg/dL (60-99); HDL Cholesterol 41 mg/dL (>40); LDL Cholesterol Calculated 134 mg/dL (<100); Magnesium 2.1 mg/dL (1.6-2.6); Potassium 4.7 mmol/L (3.3-5.1); Sodium 142 mmol/L (135-145); Total Protein 8.2 g/dL (6.5-8.0); Triglycerides 132 mg/dL (<150)
[2024-09-05 11:25] LABS: Folate 15.9 ng/mL (> or = 4.0); TSH reflex Free T4 4.94 uIU/mL (0.32-4.0); Vitamin B12 577 pg/mL (200-900); Vitamin D 25-OH Total 94.1 ng/mL (>30)
[2024-09-05 11:57] LABS: B Type Natriuretic Peptide 44 pg/mL (<100)
[2024-09-05 14:30] LABS: Free T4 (Free Thyroxine) 0.91 ng/dL (0.71-1.85)
== END 2024-09-05 08:07 | disposition home or self-care (01) ==
LOC: HO.HMGCLDS 08:06
PROVIDERS: PCP Internal Medicine; Visit Provider Physician Assistant Medical
DX: Z00.00 Encounter for general adult medical examination without abnormal findings (principal); R60.0 Localized edema; Z13.6 Encounter for screening for cardiovascular disorders; Z13.1 Encounter for screening for diabetes mellitus
CPT/HCPCS: 36415; 80053; 80061; 80076; 82248; 82306; 82607; 82746; 83036; 83735; 83880; 84439; 84443; 85025; 86140

== ENCOUNTER → 2024-09-07 09:37 | Outpatient (BNV) | payer MEDICARE, SELFPAY | PROVIDERS: PCP Internal Medicine; Visit Provider Radiology Diagnostic Radiology | DX: R60.0 Localized edema (principal) | CPT/HCPCS: 93970 ==

== ENCOUNTER 2024-09-07 09:40 | Outpatient (REF) | payer MEDICARE, SELFPAY ==
--- NOTE | ~2024-09-07 | US_ITS ---
EXAMINATION: US TRIPLEX LOWER EXTREMITY, BILATERAL CLINICAL INFORMATION: Localized edema bilaterally. COMPARISON: None available. TECHNIQUE: Color-flow triplex imaging with spectral analysis and compression Doppler were performed on the bilateral lower extremities. FINDINGS: Respiratory variation, normal compression and augmented flow are noted throughout the bilateral lower extremities. The visualized common femoral vein, superficial femoral vein, profunda femoral vein, popliteal vein and midcalf peroneal and posterior tibial venous segments show no evidence of deep venous thrombosis bilaterally. There is no Flower's cyst. US/US venous duplex LE BI IMPRESSION: No evidence of deep venous thrombosis involving the bilateral lower extremities. Electronically signed by: John Burgos MD 09/07/2024 11:56 AM EDT
--- OUTSIDE RECORDS SUMMARY | 2024-09-07 11:34 | XMS_ITS | Clinical Summary ---
Author Organization [facility] Address [address] [place] [address] Care Team Providers Care Termite Control Technician Name Role Phone Ulices Elias Primary Care [...] Date Smoking Tobacco: Never Assessed Comments:Smoking Status:Toba accounting assistant use:Sleep Medicine Migration - Source Name: [...] this topic Zoster (Zostavax) Discontinued Care Teams Termite Control Technician Relationship Specialty Start Date End Date Ulices Elias PCP - General 02/01/23
--- OUTSIDE RECORDS SUMMARY | 2024-09-07 11:34 | XMS_ITS | Clinical Summary ---
Author Organization [facility] [place] [address] Care Team Providers Care Vegetable Preparer Name Role Phone Chris Alegria MD Primary Care Provider [phone] Allergies No known active allergies Medications Medication [...] - Influenza standard series) 02/27/2024 Care Teams Vegetable Preparer Relationship Specialty Start Date End Date Chris Alegria MD [address] [place] [address] [facility] - General 05/20/10
--- OUTSIDE RECORDS SUMMARY | 2024-09-07 11:34 | XMS_ITS | Patient Health Record ---
Author Organization [facility] Address [address] [place] [address] Care Team Providers Care Accountant Cost Name Role Phone Chris Hardy MD Primary Care Provider Unavail able Laura Mosley Unavailable [phone] Reason For Referral No Information Encounters Encounter Location Date Provider Diagnosis [facility] [place] [address] [facility] [address] [place] [address] 12/20/2023 Laura Mosley Plan Of Treatment No Information Insurance Providers Payer Name Payer Address Payer Phone Subscriber Number Group Number Insured Name Patient Relationship to Insured Coverage Start Date Coverage End Date [facility] 65 Medicare Preferred [address] [place] [address] [id number] Bravo Moore Self - patient is the insured
--- OUTSIDE RECORDS SUMMARY | 2024-09-07 11:34 | XMS_ITS ---
Author Organization [facility] Address [address] [place] [address] Care Team Providers Care Industrial Green Systems Designer Name Role Phone Chris Hardy MD Primary Care Provider Unavail able Laura Mosley Unavailable [phone] REASON FOR VISIT Cx 12/22/23 RUG HOOKER appt Encounters Encounter Location Date [facility] [address] [address] 12/20/2023 Laura Mosley Plan Of Treatment No Information Progress Notes * Bravo REALDOB: 6 (78 yo M)Acc No.[id number]:12/20/2023 Patient:?Bravo Real :1945???Age:78 Y???Sex:Male Address:[address] [place] [address] * true * Date:? Generated for Printi ng/Fasiag/eTransmitting on:?09/07/2024 11:34 AM EDT
--- OUTSIDE RECORDS SUMMARY | 2024-09-07 11:35 | XMS_ITS | Clinical Summary ---
Author Organization [facility] ity Address [address] [place] [address] Care Team Providers Care Washer Meat Name Role Phone Unavailable Primary Care Provider [...]
--- OUTSIDE RECORDS SUMMARY | 2024-09-07 11:35 | XMS_ITS ---
Author Organization [facility] Address [address] [place] [address] Care Team Providers Care Medication Specialist Name Role Phone Hayley SYLVESTER, Chris Primary Care Provider Unavail able Laura Mosley Unavailable [phone] Encounters Encounter Location Date Provider Diagnosis [facility] [address] [place] [address] 12/22/2023 Laura Mosley Plan Of Treatment No Information Progress Notes * Bravo MOOREDOB: 6 (78 yo M)Acc No.[id number]:12/22/2023 Progress Notes Patient:?Bravo MOORE Provider:?Laura Mosley DPM :1945???Age:78 Y???Sex:Male Eric e:12/22/2023 Address:[address] [place], [place] [address] Pcp:Chris Hardy MD Subjective: * Chief Complaints: [...] DPM Date:? Generated for Maria Fernanda chappell/Huma/eTransmitting on:?09/07/2024 11:34 AM EDT
== END 2024-09-07 09:41 | disposition home or self-care (01) ==
LOC: HO.US 09:40
PROVIDERS: PCP Internal Medicine; Visit Provider Physician Assistant Medical
DX: R60.0 Localized edema (principal)
CPT/HCPCS: 93970

== ENCOUNTER 2024-09-25 11:01 | Outpatient (AMB) | payer BC, SELFPAY ==
--- NOTE | 2024-09-25 11:08 | MHC.OFFVIS ---
Vital Signs 09/25/24 11:13 Height 5 ft 7.25 in Weight 292 lb BMI 45.4 BP 122/70 Blood Pressure Location Lt brachial Position Sitting Pulse 60 Pulse Source Pulse Oximeter Pulse Oximetry (%) 95 Oxygen Delivery Method Room Air Intake Visit Reasons: INP-MARYBETH Intake Note: Internal referral MARYBETH [employer] Math Tutor Required: No Accompanied by: Self / Same As Patient Allergies No Known Allergies [No Known Allergies*] Allergy (Verified 08/30/24 10:09) HPI Comments Details: 78 year old l. handed male referred to us for sleep evaluation, referred to us by Dr. Jauregui. He goes to sleep at 11:30 and gets up at 4:30am, stays in bed until 7am and has 2-3 bathroom breaks on a good night. He snores loudly and stops breathing at night per his and friend. He is on Tamsulosin for BPH and nocturia and continually feels fatigued due to fragmented sleep. He was at a convention in [place] and he could not catch his breath walking up a hill, he is on HCTZ for 2+bilateral pitting edema and wears his compression stockings. He was having Afib once every other month, now it is occuring more often, and being managed with Metoprolol and his HTN is better managed. He was recently started on Levothyroxine due to TSH 4.94. He c/o LBP and arthritic joint pain, however denies injury. He consumes alcohol 5x a week, and is trying to taper down to 3x a week. He is not a smoker, does not vape. [facility] Medical History (Updated 09/25/24 @ 13:08 by Kassandra Sanchez PA-C) Bilateral leg edema Leg edema Hyperlipidemia Primary osteoarthritis of left knee Major depressive disorder Diverticulosis Obstructive sleep apnea on CPAP Duodenal ulcer disease Acute bronchitis Morbid obesity PAF (paroxysmal atrial fibrillation) Arthritis Varicose vein of leg Elevated cholesterol On beta mayur at home History of blood transfusion Gutierrez esophagus MARYBETH on CPAP History of GI bleed Hypertension Heart palpitations Hx of duodenal ulcer Atrial fibrillation Surgical History History of colonoscopy with polypectomy (05/21/20) History of colonoscopy (~05/21/20) History of total hip replacement Hx of toe surgery History of total right knee replacement Hx of esophagogastroduodenoscopy History of ventral hernia repair Hx of appendectomy Family History Father Lung cancer Mother Cancer Social History Are you a primary critical care registered nurse to a significant other at home: No Do you presently have visiting nurse or other home services: No Alcohol intake: current Alcohol intake frequency: a few times a month Patient Tobacco Use Status: Former Tobacco user Review of Systems Const All systems reviewed & are unremarkable except as noted in HPI and below Physical Exam Vital Signs: Last Vital Signs Pulse 60 09/25/24 11:13 BP 122/70 09/25/24 11:13 Pulse Ox 95 09/25/24 11:13 Oxygen Delivery Method Room Air 09/25/24 11:13 BMI result Body Mass Index 45.4 Const General: cooperative, comfortable and no acute distress Nutritional Appearance: obese (BMI is 45.4) centrally obese Orientation/consciousness: patient oriented x3 HEENT Ears: other Face and sinus: Yes normal facial exam and Yes face symmetric Teeth and gingiva: other (M[place]ampti score is 2) Eyes Pupils: Equal, round and reactive pupils present Resp Effort & Inspection: normal respiratory effort and able to speak in complete sentences Neuro General: patient oriented x3 and moves all extremities Cranial nerves: Yes CN's II-XII intact bilaterally, Yes Facial sensation intact/muscles of mastication intact, Yes Equal, round and reactive pupils present, Yes Normal accommodation reflex present, Yes Bilaterally intact EOM present, Yes Normal facial strength present, Yes Midline tongue present, Yes Ability to bilaterally rotate head present and Yes Ability to bilaterally elevate shoulders present Cognition (Neuro): normal cognition Gait exam (Neuro): Normal gait present Motor exam (neuro): 5/5 motor strength present throughout and Normal motor muscle tone present throughout Deep tendon reflexes (DTR's): Right triceps reflex intensity grade: 2+, Left triceps reflex intensity grade: 2+, Rt Biceps (C5, C6): 2+, Left biceps reflex intensity grade: 2+, Right brachioradialis reflex intensity grade: 2+, Left brachioradialis reflex intensity grade: 2+, Right patellar reflex intensity grade: 2+ and Left patellar reflex intensity grade: 2+ Psych Appearance: grossly normal Thought process: Normal thought process present Thought content: Normal thought content present Results Reviewed Results Reviewed: labs TSH is elevated, recently started Levothyroxine. Assessment & Plan Assessment & Plan (1) Chronic lower back pain: Code(s): M54.50 - Low back pain, unspecified; G89.29 - Other chronic pain Category: Medical Qualifiers: Back pain laterality: midline Sciatica presence: unspecified whether sciatica present Qualified Code(s): M54.50 - Low back pain, unspecified; G89.29 - Other chronic pain (2) Loud snoring: Code(s): R06.83 - Snoring Category: Medical (3) Obstructive sleep apnea on CPAP: Code(s): G47.33 - Obstructive sleep apnea (adult) (pediatric) Category: Medical Plan HST for fatigue and snoring. PT for LBP chronic Labs were completed and reviewed. Orders: Orders PT Evaluation and Treatment Today G89.29 - Other chronic pain, M54.32 - Sciatica, left side, M54.50 - Low back pain, unspecified RT home sleep study Today G47.19 - Other hypersomnia Patient Instructions: Sleep Hygiene provided: set a scheduled bedtime and wake time to help regulate the circadian rhythm and balance the release of pituitary hormones. Sleep in a dark room, temperatures below 68 degrees, and no devices n bed. Limit caffeinated products 6 hours prior to bed, and limit fluids 2-4 hours prior to bed. Gentle night yoga, diffusing essential oils, and playing soft music can be relaxing. For snoring mouth guard may be an option, or nose strips. Monitor BP, the number one modifiable RF for cardiovascular events is good BP control. Weight management, continue walking as tolerable and ask PCP about Wegovy or Semaglutide, if Blood sugars are consistently elevated. Wearing Compression stockings daily is emphasized. Coding Level of Care Code New Pt Level 4 (56679) Diagnoses Chronic midline low back pain, unspecified whether sciatica present M54.50; G89.29 Back pain laterality: midline Sciatica presence: unspecified whether sciatica present Loud snoring R06.83 Obstructive sleep apnea on CPAP G47.33 Time Spent (min) 30 Sleep Questionnaire Difficulty falling asleep: No Difficulty staying asleep?: Yes Number of arousals: 2-3 Snoring: Yes Witnessed apneas: No Gasping arousals: No Nocturia: Yes GERD: Yes Vivid dreams: Yes Acting out dreams: No Abnormal behavior in sleep: No Abnormal movements in sleep: No Morning headaches: No Excessive daytime sleepiness: Yes Daytime naps: Yes Restless legs: No Hallucinations: No Sleep paralysis: No Drop attacks: No Sleep Study: Yes CPAP: Yes
[2024-09-25 11:13] VITALS: BP 122/70; PULSE 60; O2SAT 95; BMI 45.4
--- OUTSIDE RECORDS SUMMARY | 2024-09-25 12:34 | XMS_ITS | Clinical Summary ---
Author Organization [facility] [place] [address] Care Team Providers Care Traffic Survey Technician Name Role Phone Chris Alegria MD Primary Care Provider [phone] Allergies No known active allergies Medications Medication [...] - Influenza standard series) 02/27/2024 Care Teams Traffic Survey Technician Relationship Specialty Start Date End Date Chris Alegria MD [address] [place] [address] [facility] - General 05/20/10
--- OUTSIDE RECORDS SUMMARY | 2024-09-25 12:34 | XMS_ITS | Clinical Summary ---
Author Organization [facility] ity Address [address] [place] [address] Care Team Providers Care Adobe Block Maker Name Role Phone Unavailable Primary Care Provider [...]
--- OUTSIDE RECORDS SUMMARY | 2024-09-25 12:34 | XMS_ITS ---
Author Organization [facility] Address [address] [place] [address] Care Team Providers Care Manager Primary Care Name Role Phone Chris Hardy MD Primary Care Provider Unavail able Laura Mosley Unavailable [phone] REASON FOR VISIT Cx 12/22/23 AIR MOTOR REPAIRER appt Encounters Encounter Location Date [facility] [address] [address] 12/20/2023 Laura Mosley Plan Of Treatment No Information Progress Notes * Bravo REALDOB: 6 (78 yo M)Acc No.[id number]:12/20/2023 Patient:?Bravo Real :1945???Age:78 Y???Sex:Male Address:[address] [place] [address] * true * Date:? Generated for Printi ng/Fasiag/eTransmitting on:?09/25/2024 12:34 PM EDT
--- OUTSIDE RECORDS SUMMARY | 2024-09-25 12:34 | XMS_ITS | Clinical Summary ---
Author Organization [facility] Address [address] [place] [address] Care Team Providers Care Aircraft Engine Technician Name Role Phone Ulices Elias Primary [...] Date Smoking Tobacco: Never Assessed Comments:Smoking Status:Toba senior account clerk use:Sleep Medicine Migration - Source Name: Tobacco [...] this topic Zoster (Zostavax) Discontinued Care Teams Aircraft Engine Technician Relationship Specialty Start Date End Date Ulices Elias PCP - General 02/01/23
--- OUTSIDE RECORDS SUMMARY | 2024-09-25 12:34 | XMS_ITS | Patient Health Record ---
Author Organization [facility] Address [address] [place] [address] Care Team Providers Care Promotions Executive Producer Name Role Phone Chris Hardy MD Primary Care Provider Unavail able Laura Mosley Unavailable [phone] Reason For Referral No Information Encounters Encounter Location Date Provider Diagnosis [facility] [place] [address] [facility] [address] [place] [address] 12/20/2023 Laura Mosley Plan Of Treatment No Information Insurance Providers Payer Name Payer Address Payer Phone Subscriber Number Group Number Insured Name Patient Relationship to Insured Coverage Start Date Coverage End Date [facility] 65 Medicare Preferred [address] [place] [address] [id number] Bravo Moore Self - patient is the insured
--- OUTSIDE RECORDS SUMMARY | 2024-09-25 12:35 | XMS_ITS ---
Author Organization [facility] Address [address] [place] [address] Care Team Providers Care Manager Spring Name Role Phone Hayley SYLVESTER, Chris Primary Care Provider Unavail able Laura Mosley Unavailable [phone] Encounters Encounter Location Date Provider Diagnosis [facility] [address] [place] [address] 12/22/2023 Laura Mosley Plan Of Treatment No Information Progress Notes * Bravo MOOREDOB: [birth year] (78 yo M)Acc No.[id number]:12/22/2023 Progress Notes Patient:?Bravo MOORE Provider:?Laura Mosley DPM :1945???Age:78 Y???Sex:Male Eric e:12/22/2023 Address:[address] [place], [place] [id number] Pcp:Chris Hardy MD Subjective: * Chief Complaints: [...] DPM Date:? Generated for Maria Fernanda chappell/Huma/eTransmitting on:?09/25/2024 12:34 PM EDT
== END 2024-09-25 12:22 | disposition home or self-care (01) ==
LOC: HO.HSMS 11:02
PROVIDERS: PCP Internal Medicine; Visit Provider Physician Assistant Medical
DX: M54.50 Low back pain, unspecified (principal); G89.29 Other chronic pain; R06.83 Snoring; G47.33 Obstructive sleep apnea (adult) (pediatric)
CPT/HCPCS: 99204

== ENCOUNTER → 2024-09-25 14:12 | Outpatient (REF) | payer MEDICARE, SELFPAY ==
--- NOTE | 2024-09-25 14:17 | CA_ITS ---
Transthoracic Echocardiogram Patient (Last, First, Middle): Bravo Moore C Gender: Male Date of : 1945 Age: 78 Procedure Date: 09/25/2024 Procedure Type: Transthoracic Echocardiogram Location: OP Height: 175. cm Weight: 131.54 kg BSA: 2.42 m2 Heart Rate: bpm BP: 128 / 70 mmHg Design Engineer Marine Equipment: [id number] Referring MD: Miguel You MD Symptoms: I48.91 - Unspecified atrial fibrillation Study Quality: Fair ECG Rhythm: Atrial Fibrillation Conclusions: - The left ventricular systolic function is normal. The calculated ejection fraction is 67% by biplane method. - There is moderate aortic valve stenosis. Findings Left Ventricle Normal left ventricular cavity size. The left ventricular systolic function is normal. The calculated ejection fraction is 67% by biplane method. There is no evidence of regional wall motion abnormalities. Diastolic function is normal for age. Possibly some left ventricular hypertrophy, but difficult to assess as the endocardial definition is suboptimal. Right Ventricle Normal right ventricular cavity size and systolic function. Atria Both atria are normal in size. Aortic Valve There is moderate calcification of the aortic valve. There is moderate aortic valve stenosis. There is no aortic valve regurgitation. Mitral Valve There is mild mitral annular calcification. There is no mitral valve stenosis. Pulmonic Valve The pulmonic valve is likely normal. Tricuspid Valve There is no tricuspid valve regurgitation. Tricuspid regurgitation envelope is inadequate for calculation of right ventricular systolic pressure. Great Vessels The asc aorta and aortic arch are normal in size. Venous The inferior vena cava was not well visualized. The inferior vena cava is normal in size. Pericardium/Pleural There is a trivial pericardial effusion. Prior Study Comparison No significant change compared to prior study dated: 02/04/2023. Measurements 2D Linear Measurements IVSd: 0.96 0.6-0.9/0.6-1.0 cm LVIDd: 5.41 3.9-5.3/4.2-5.9 cm LVIDd Index: 2.24 2.4-3.2/2.2-3.1 cm/m2 LVPWd: 0.89 0.7-1.1 cm LA Diam: 4.00 2.7-3.8/3.0-4.0 cm LAIDs Index: 1.65 1.5-2.3 cm/m2 LV Mass: 233.13 67-162/88-224 g LV Mass Index: 96.33 43-95/49-115 g/m2 LVOT Diam: 2.00 3.0+(-)1.3 cm 2D Systolic Function EF 4C: 73.80 >55% EF 2C: 57.90 >55% EF BiP: 67.10 >55% Mitral Valve MV Pk E: 1.06 MV PK A: 0.77 MV Decel Time: 282.00 E/A: 1.40 E'Lateral: 9.47 E'Medial: 5.91 E/E' Med: 17.90 E/E' Lat: 11.20 PHT: 83.00 MVA PHT: 2.65 Decel Ozark: 3.75 Aortic Valve AoV Pk Toni: 3.21 AoV Mn Toni: 2.36 AoV VTI: 0.80 AoV Pk Grad: 41.00 Aov Mn Grad: 25.00 ERNESTO Cont.VTI: 1.08 LVOT LVOT Pk Toni: 1.14 LVOT Mn Toni: 0.76 LVOT VTI: 0.27 LVOT Pk Grad: 5.00 LVOT Mn Grad: 3.00 LVOT Diam: 2.00 LVOT Area: 3.14 Diastolic Function MV Pk E: 1.06 MV Pk A: 0.77 E/A: 1.40 E'Medial: 5.91 E/E' Med: 17.90 E' Laterial: 9.47 E/E' Lat: 11.20 Right Ventricle TAPSE (mm): 22.00 TVS' Toni: 8.38 Tricuspid Valve TR Pk Toni: 1.15 TR Pk Grad: 5.00 Great Vessels Aorta Sinus of Valsalva: 3.10 2.0-3.5 cm Ao Asc: 3.30 2.1-3.4 cm Ao Arch: 3.50 Pulmonary Valve PV Pk Toni: 0.94 Peak PV Grad: 4.00 Updated in Other Vendor System with Status of Final Arnoldo Warren MD electronically signed on 09/26/2024 10:17:24 AM with status of Final
--- OUTSIDE RECORDS SUMMARY | 2024-09-25 16:04 | XMS_ITS | Clinical Summary ---
Author Organization [facility] [place] [address] Care Team Providers Care Sales Operations Manager Name Role Phone Chris Alegria MD Primary Care Provider [phone] Allergies No known active allergies Medications Medication [...] - Influenza standard series) 02/27/2024 Care Teams Sales Operations Manager Relationship Specialty Start Date End Date Chris Alegria MD [address] [place] [address] [facility] - General 05/20/10
--- OUTSIDE RECORDS SUMMARY | 2024-09-25 16:04 | XMS_ITS | Clinical Summary ---
Author Organization [facility] Address [address] [place] [address] Care Team Providers Care Director Process Name Role Phone Unavailable Primary Care Provider [...]
--- OUTSIDE RECORDS SUMMARY | 2024-09-25 16:04 | XMS_ITS | Clinical Summary ---
Author Organization [facility] Address [address] [place] [address] Care Team Providers Care Aeronautical Engineer Name Role Phone Ulices Elias Primary Care [...] Smoking Tobacco: Never Assessed Comments:Smoking Status:Toba senior project accountant use:Sleep Medicine Migration - Source Name: [...] this topic Zoster (Zostavax) Discontinued Care Teams Aeronautical Engineer Relationship Specialty Start Date End Date Ulices Elias PCP - General 02/01/23
== END ==
LOC: HO.CARD 14:12
PROVIDERS: PCP Internal Medicine; Visit Provider Internal Medicine
DX: I48.91 Unspecified atrial fibrillation (principal)
CPT/HCPCS: 93306

== ENCOUNTER → 2024-09-25 14:17 | Outpatient (BNV) | payer MEDICARE, SELFPAY | PROVIDERS: PCP Internal Medicine; Visit Provider Internal Medicine | DX: I35.0 Nonrheumatic aortic (valve) stenosis (principal) | CPT/HCPCS: 93306 ==

== ENCOUNTER 2024-10-03 09:54 | Outpatient (AMB) | payer MEDICARE, SELFPAY ==
[2024-10-03 09:56] VITALS: BP 130/82; PULSE 72; RESP 18; TEMP 36.4; O2SAT 95; BMI 45.2
--- NOTE | 2024-10-03 09:56 | A.OFFPC_ITS ---
Vital Signs 10/03/24 09:56 Height 5 ft 7.25 in Weight 291 lb BMI 45.2 BP 130/82 Respiration 18 Pulse 72 Pulse Source Pulse Oximeter Temp 97.6 F Temp Source Temporal Artery Scan Pulse Oximetry (%) 95 Oxygen Delivery Method Room Air Intake Visit Reasons: follow up Hydraulic Jack Operator Required: No Accompanied by: Self / Same As Patient Allergies No Known Allergies [No Known Allergies*] Allergy (Verified 10/03/24 09:57) Tobacco use date assessed: 10/03/24 Fall risk assessment: No Falls in past year Last assessed Fall Risk: 10/03/24 Dental Screening Dental Screen Date: 10/03/24 Did you have a dental visit in the last 12 months?: Yes Did you have a dental problem in the last 6 months where you did not have access to dental care?: No Was dental information given to patient?: Patient has dentist [facility] Medical History Encounter for colorectal cancer screening using Cologuard test (09/08/24) Bilateral leg edema Leg edema Hyperlipidemia Primary osteoarthritis of left knee Major depressive disorder Diverticulosis Obstructive sleep apnea on CPAP Duodenal ulcer disease Acute bronchitis Morbid obesity PAF (paroxysmal atrial fibrillation) Arthritis Varicose vein of leg Elevated cholesterol On beta mayur at home History of blood transfusion Gutierrez esophagus MARYBETH on CPAP History of GI bleed Hypertension Heart palpitations Hx of duodenal ulcer Atrial fibrillation Surgical History History of colonoscopy with polypectomy (05/21/20) History of colonoscopy (~05/21/20) History of total hip replacement Hx of toe surgery History of total right knee replacement Hx of esophagogastroduodenoscopy History of ventral hernia repair Hx of appendectomy Family History Father Lung cancer Mother Cancer Social History (Updated 10/03/24 @ 10:05 by AMANDA Jerez) Housing: House Are you a primary long term care phlebotomist to a significant other at home: No Do you presently have visiting nurse or other home services: No Alcohol intake: current Alcohol intake frequency: a few times a week Patient Tobacco Use Status: Former Tobacco user service: No Current occupational status: employed Current occupation: self employed Cognitive needs: No Hearing needs: No Vision needs: Yes (reading glasses) Questionnaire PHQ-9 Over the last 2 weeks, how often have you been bothered by any of the following problems? 1. Little interest or pleasure in doing things: not at all 2. Feeling down, depressed, or hopeless: not at all 3. Trouble falling or staying asleep, or sleeping too much: not at all 4. Feeling tired or having little energy: not at all 5. Poor appetite or overeating: not at all 6. Feeling bad about yourself - or that you are a failure or have let yourself or your family down: not at all 7. Trouble concentrating on things, such as reading the newspaper or watching television: not at all 8. Moving or speaking so slowly that other people could have noticed. Or the opposite - being so fidgety or restless that you have been moving around a lot more than usual: not at all 9. Thoughts that you would be better off or of hurting yourself in some way: not at all Total score: 0 Source: Developed by Drs. Chris Gaspar, Tricia Gross, Brayden Dawson and colleagues, with an educational jonnathan from [employer]. Thrive Questionnaire Date Thrive assessed: 10/03/24 I am a: Patient What is your living situation today?: I have a steady place to live Within the past 12 months, did the food you bought not last and you didn't have the money to get more?: Never true Within the past 12 months, did you worry whether your food would run out before you got money to buy more?: Never true Do you have trouble paying for medicines?: No Do you have trouble getting transportation to medical appointments?: No Do you have trouble paying your heating and electricity bill?: No Do you have trouble taking care of your child, family member or friend?: No Do you have trouble with day-to-day activities such as bathing, preparing meals, shopping, managing finances, etc.?: No Are you currently unemployed and looking for a job?: No Are you interested in more education?: No Please select the resources that you would like help with: None THRIVE Score: 0 AUDIT C Alcohol Use Questionnaire (AUDIT-C) 1. How often do you have a drink containing alcohol?: 2-3 times a week 2. How many drinks containing alcohol do you have on a typical day when you are drinking?: 1 or 2 3. How often do you have six or more drinks on one occasion?: Never Total Score: 3 DIVYA-7 AMB Questionnaire DIVYA-7 Date DIVYA - 7 assessed: 10/03/24 Feeling nervous, anxious, or on edge: 0 = Not at all Not being able to stop or control worryin = Not at all Worrying too much about different things: 0 = Not at all Trouble relaxin = Not at all Being so restless that it is hard to sit still: 0 = Not at all Becoming easily annoyed or irritable: 0 = Not at all Feeling afraid as if something awful might happen: 0 = Not at all Total DIVYA-7 score (0-4 normal; 5-9 mild; 10-14 moderate; 15-21 severe): 0 Source: Developed by Drs. Chris Gaspar, Tricia Gross, Brayden Dawson and colleagues, with an educational jonnathan from [employer]. Physical exam (Primary Care) Vital Signs: Last Vital Signs Temp 97.6 F 10/03/24 09:56 Pulse 72 10/03/24 09:56 Resp 18 10/03/24 09:56 BP 130/82 10/03/24 09:56 Pulse Ox 95 10/03/24 09:56 Oxygen Delivery Method Room Air 10/03/24 09:56 BMI result Body Mass Index 45.2 Tobacco/Smoking Status: Tobacco use Status Tobacco use date assessed 10/03/24 10/03/24 10:05 Patient Tobacco Use Status Former Tobacco user 10/03/24 10:05 PHQ-9: PHQ-9 Score PHQ-9: Total score 0 10/03/24 10:12 Thrive Assessment: Date of Thrive Assessment Date Thrive assessed 10/03/24 10/03/24 10:05 Coding Level of Care Code Est Pt Level 4 (63102) Complex EM visit Add On G2211 Diagnoses Hypertension I10 Morbid obesity E66.01 MARYBETH on CPAP G47.33; Z99.89 Leg edema R60.0 Assessment & Plan Assessment & Plan (1) Hypertension: Code(s): I10 - Essential (primary) hypertension Category: Medical Plan: Blood pressure is stable. (2) Morbid obesity: Comment: PATIENT REMAINS GROSSLY OBESE, WHICH IS THE UNDERLYING CAUSE OF SLEEP APNEA, HE CLAIMS TO USE CPAP EVERY NIGHT HOWEVER HE IS HAVING SOME ISSUES, WITH AIR LEAK. Code(s): E66.01 - Morbid (severe) obesity due to excess calories Category: Medical Plan: Wegovy has been ordered. We will continue the medication if his insurance approves it. (3) MARYBETH on CPAP: Comment: H/O MARYBETH SINCE 2015 HE DOES HAVE CPAP MACHINE AND USES REGULARLY CURRENTLY DOING BETTER WITH PRESSURE OF 12 CM. HE IS USING FULLFACE MASK BUT EVEN WITH THAT HE IS HAVING SOME, AIR LEAK ALSO HAS SOME AIR LEAK THROUGH THE TUBING . Code(s): G47.33 - Obstructive sleep apnea (adult) (pediatric); Z99.89 - Dependence on other enabling machines and devices Category: Medical Plan: Urology clinic to be contacted again to determine the exact date for the sleep study. (4) Leg edema: Code(s): R60.0 - Localized edema Category: Medical Plan: Patient has not switched from hydrochlorothiazide to Lasix. Ultrasound of the legs were unremarkable. Echocardiogram results discussed with patient. Patient has a very active work schedule. I advised him that he has obesity, leg edema, aortic stenosis and sleep apnea are not fully controlled. He should take some time from his busy schedule and focus on the health issues. Plan History of Present Illness The patient is a 78-year-old male presenting with concerns related to recent echocardiographic findings, potential sleep apnea, and weight management. The echocardiogram indicated aortic stenosis, a condition where the valve is narrowed, which could contribute to the patient's reported shortness of breath during physical exertion. The evaluation revealed no leg clots via ultrasound. The patient is experiencing a delay in conducting a confirmatory sleep study for sleep apnea, adding to his frustration. For weight management, the patient is following a dietary and lifestyle regimen yet finds it challenging to lower his weight significantly. He is considering Wegovy, inspired by a family member's success with the medication, pending insurance approval. Concerns about gastrointestinal side effects from diuretic changes have prevented the patient from switching to Lasix. He relies on family assistance with medication renewals, leading to uncertainty about his current prescription status. Social History - Engages in regular physical activity, such as walking, though limited by physical discomfort. - Adheres to a dietary regimen focused on portion control, exercise, no alcohol, and no sugar. 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 Review of Systems - Cardiovascular: Reports shortness of breath with exertion. - Respiratory: Denies persistent respiratory distress. - Gastrointestinal: Reports concern about potential side effects of Lasix. - Musculoskeletal: Reports shoulder pain. - General: Reports frustration with ongoing weight management efforts. Physical Exam General: Appearance normal, both eyes and all related structures Nutritional Appearance: Well nourished Orientation/consciousness: Patient oriented x3 Limitations: No limitations Head: Normal to inspection Neck: Normal visual inspection Chest: Normal palpation of entire chest wall Respiratory: Normal respiratory effort, but patient reports occasional shortness of breath Neurology: Patient oriented x3 Results - Echocardiogram: Aortic stenosis; normal heart function otherwise. - Ultrasound: No clots detected in legs. - Cologuard: Negative result. Plan I will coordinate a referral to a broadcast operations manager for further management of the aortic stenosis to address any subsequent complications. I will expedite the sleep study arrangements to obtain a definitive diagnosis for potential sleep apnea. In terms of weight management, I will initiate a prescription for Wegovy, dependent on insurance coverage approval. Medication management will include addressing gaps in prescription refills with family support. A physical therapy referral will help manage continuing shoulder discomfort. Patient was informed and verbally consented to the use of an ambient scribe for clinic note documentation during this visit. Discussion Notes During today's visit, I discussed the echocardiogram findings of aortic stenosis and its potential impact on the patient. I recommended follow-up with a broadcast operations manager for comprehensive management. I addressed the ongoing delays with the sleep study for suspected sleep apnea and confirmed I will be following up to ensure the study is conducted. For weight loss, I explained the potential use of Wegovy, provided clarity on insurance coverage challenges, and offered to complete any necessary documentation for approval. We also discussed transitioning diuretics to Lasix, while noting the patient's concerns over side effects and the impact on daily activities, especially considering his travel schedule. I proposed initiating a physical therapy regimen for shoulder pain relief. We concluded with a review of the importance of closely monitoring prescription renewals and ensuring polypharmacy management. Patient Instructions - Follow up with a broadcast operations manager regarding aortic stenosis management. - Await further instructions regarding the sleep study for sleep apnea diagnosis. - Begin the prescribed Wegovy for weight management if covered by insurance. - Make sure all current prescriptions are up to date, discussing any uncertainties with family members. - Follow the recommended dietary and exercise plan as part of ongoing weight management. - Attend physical therapy sessions for shoulder pain management. - Contact my office if there are any changes in symptoms or further assistance is needed. Medications: New semaglutide (weight loss) (Wegovy) administer weeks 1 through 4 of therapy 0.25 mg (0.5 mL) subcut QWEEK 2 mL 0RF
--- OUTSIDE RECORDS SUMMARY | 2024-10-03 11:25 | XMS_ITS | Clinical Summary ---
Author Organization [facility] Address [address] [place] [address] Care Team Providers Care Director Educational Radio Name Role Phone Ulices Elias Primary Care [...] Date Smoking Tobacco: Never Assessed Comments:Smoking Status:Toba general accounting clerk use:Sleep Medicine Migration - Source Name: [...] this topic Zoster (Zostavax) Discontinued Care Teams Director Educational Radio Relationship Specialty Start Date End Date Ulices Elias PCP - General 02/01/23
--- OUTSIDE RECORDS SUMMARY | 2024-10-03 11:25 | XMS_ITS ---
Author Organization [facility] Address [address] [place] [address] Care Team Providers Care Mounting Machine Operator Name Role Phone Chris Hardy MD Primary Care Provider Unavail able Laura Mosley Unavailable [phone] REASON FOR VISIT Cx 12/22/23 DIP DYER appt Encounters Encounter Location Date [facility] [address] [address] 12/20/2023 Laura Mosley Plan Of Treatment No Information Progress Notes * Bravo REALDOB: [birth year] (78 yo M)Acc No.[id number]:12/20/2023 Patient:?Bravo Real :1945???Age:78 Y???Sex:Male Address:[address] [place] [address] * true * Date:? Generated for Printi ng/Nicoleg/eTransmitting on:?10/03/2024 11:25 AM EDT
--- OUTSIDE RECORDS SUMMARY | 2024-10-03 11:25 | XMS_ITS | Clinical Summary ---
Author Organization [facility] [place] [address] Care Team Providers Care X Ray Technician Name Role Phone Chris Alegria MD Primary Care Provider [phone] Allergies No known active allergies Medications Medication [...] - Influenza standard series) 02/27/2024 Care Teams X Ray Technician Relationship Specialty Start Date End Date Chris Alegria MD [address] [place] [address] [facility] - General 05/20/10
--- OUTSIDE RECORDS SUMMARY | 2024-10-03 11:25 | XMS_ITS | Patient Health Record ---
Author Organization [facility] Address [address] [place] [address] Care Team Providers Care Medical Legal Investigator Name Role Phone Chris Hardy MD Primary Care Provider Unavail able Laura Mosley Unavailable [phone] Reason For Referral No Information Encounters Encounter Location Date Provider Diagnosis [facility] [place] [address] [facility] [address] [place] [address] 12/20/2023 Laura Mosley Plan Of Treatment No Information Insurance Providers Payer Name Payer Address Payer Phone Subscriber Number Group Number Insured Name Patient Relationship to Insured Coverage Start Date Coverage End Date [facility] 65 Medicare Preferred [address] [place] [address] [id number] Bravo Moore Self - patient is the insured
--- OUTSIDE RECORDS SUMMARY | 2024-10-03 11:25 | XMS_ITS | Clinical Summary ---
Author Organization [facility] Address [address] [place] [address] Care Team Providers Care Associate Dean Of Students Name Role Phone Unavailable Primary Care Provider [...] Vaccines (1 of 2) 12/14/1995 RSV Immunization Adult Patie nts (1 - 1-dose 75+ series) 2020 COVID-19 Vaccine ( - 2023-2 5 season) 2024 Influenza Vaccine (Season Ended) 2025 HIB Vaccines Aged Out No longer eligi [...] age to complete this topic Meningococcal B Vaccine Aged Out No l onger eligible based on patient's age to complete this topic RSV Immunization Patients Un celso 20 months Aged Out No longer eligible b ased on patient's age to complete this topic Varicella Vaccines Aged Out No longer eligible based on patient's age to complete this topic
--- OUTSIDE RECORDS SUMMARY | 2024-10-03 11:26 | XMS_ITS ---
Author Organization [facility] Address [address] [place] [address] Care Team Providers Care Automated Access Systems Technician Name Role Phone Hayley SYLVESTER, Chris Primary Care Provider Unavail able Laura Mosley Unavailable [phone] Encounters Encounter Location Date Provider Diagnosis [facility] [address] [place] [address] 12/22/2023 Laura Mosley Plan Of Treatment No Information Progress Notes * Bravo MOOREDOB: 6 (78 yo M)Acc No.[id number]:12/22/2023 Progress Notes Patient:?Bravo MOORE Provider:?Laura Mosley DPM :1945???Age:78 Y???Sex:Male Eric e:12/22/2023 Address:[address] [place], [place] [id number] Pcp:Chris Hardy MD Subjective: * Chief Complaints: [...] DPM Date:? Generated for Maria Fernanda chappell/Huma/eTransmitting on:?10/03/2024 11:25 AM EDT
== END 2024-10-03 10:32 | disposition home or self-care (01) ==
LOC: HO.HMCSH 09:54
PROVIDERS: PCP Internal Medicine; Visit Provider Internal Medicine
DX: I10 Essential (primary) hypertension (principal); E66.01 Morbid (severe) obesity due to excess calories; G47.33 Obstructive sleep apnea (adult) (pediatric); Z99.89 Dependence on other enabling machines and devices; R60.0 Localized edema

== ENCOUNTER → 2024-10-03 09:54 | Outpatient (BNVA) | payer MEDICARE, SELFPAY | PROVIDERS: PCP Internal Medicine; Visit Provider Internal Medicine | DX: I10 Essential (primary) hypertension (principal); E66.01 Morbid (severe) obesity due to excess calories; R60.0 Localized edema; G47.33 Obstructive sleep apnea (adult) (pediatric); I35.0 Nonrheumatic aortic (valve) stenosis; Z68.42 Body mass index [BMI] 45.0-49.9, adult; Z99.89 Dependence on other enabling machines and devices | CPT/HCPCS: 96127; 99212 ==

== ENCOUNTER 2024-10-05 08:47 | Emergency (ER) | payer MEDICARE, SELFPAY ==
--- NOTE | ~2024-10-05 | XR_ITS ---
EXAMINATION: XR CHEST CLINICAL INFORMATION: dizziness COMPARISON: 09/25/2023. TECHNIQUE: 2 views of the chest were obtained. FINDINGS: The cardiac, hilar, and mediastinal contours are normal. The lungs are clear bilaterally. There is no pneumothorax or pleural effusion. There is no focal osseous or soft tissue abnormality. There are spinal degenerative changes. XR/XR chest 2V IMPRESSION: No active pulmonary disease. Electronically signed by: John Burgos MD 10/05/2024 09:31 AM EDT
--- NOTE | ~2024-10-05 | CT_ITS ---
EXAMINATION: CT ANGIOGRAM CHEST CLINICAL INFORMATION: Dyspnea and lightheadedness, concern for PE. COMPARISON: 11/26/2017. X-ray dated 10/05/2024. TECHNIQUE: Multiple axial images were obtained through the chest after the administration of 65 mL of Omnipaque 350 intravenous contrast. Extensive vascular post-processing including two-dimensional and three-dimensional reformatted images were created and reviewed on an independent workstation. This CT examination was performed using dose optimization techniques as appropriate, variously including the following: *Automated exposure control *Adjustment of mA and/or kV according to patient size (this includes techniques or standardized protocols for targeted exams where dose is matched to indication/reason for exam; i.e. extremities or head) *Use of iterative reconstruction technique FINDINGS: VASCULAR: Study quality is adequate. There is no evidence of pulmonary emboli. The main pulmonary artery is normal in size. The aorta is normal in caliber and course. Minimal atheromatous calcification. The heart size is top normal. There are calcifications of the aortic and mitral annulus. There are aortic valvular calcifications. No pericardial effusion. Great vessels appear patent. Mild contrast reflux into the hepatic veins present suggesting increased right heart pressures. LUNGS: There is mild mosaic attenuation of both lungs. There is dependent subpleural atelectasis bilaterally. There is no focal pneumonia identified. There is thickening of the small airways suggesting bronchitis. There are no suspicious nodules or masses. There are no effusions or pneumothoraces. MEDIASTINUM: No abnormal lymph nodes or masses. Normal thyroid. Small to moderate size sliding hiatus hernia. AXILLA/CHEST WALL: No lymphadenopathy or mass. UPPER ABDOMEN: There is hepatomegaly with diffuse fatty infiltration. There is no suspicious hepatic lesion. Exophytic left renal cyst measuring 4.2 cm arising from the left kidney upper pole. Imaged bowel structures normal aside from mild diverticulosis. OSSEOUS STRUCTURES: No suspicious lytic or blastic bone lesions. There are degenerative changes of the spine. CT/CT angio chest PE protocol IMPRESSION: 1. No evidence of pulmonary embolus. No evidence of acute aortic syndrome or aneurysm. 2. There are calcifications of the aortic valve, suggesting possible aortic stenosis. There is borderline cardiac enlargement. 3. Mild contrast reflux into the hepatic veins present suggesting increased right heart pressures. 4. Mosaic attenuation of the lung parenchyma, most likely on the basis of underlying air trapping. Differential includes constrictive (obliterative) bronchiolitis, hypersensitivity pneumonitis, as well as less commonly bronchial asthma, and vasculitis. 5. Thickening of the small airways suggesting chronic bronchitis. 7. Hepatomegaly with diffuse fatty infiltration. 8. Small to moderate size hiatus hernia. Electronically signed by: John Burgos MD 10/05/2024 11:05 AM EDT
--- NOTE | 2024-10-05 08:50 | ECG_ITS ---
Test Reason : palpitations Blood Pressure : */* mmHG Vent. Rate : 63 BPM Atrial Rate : 63 BPM P-R Int : 188 ms QRS Dur : 102 ms QT Int : 412 ms P-R-T Axes : 16 -27 22 degrees QTcB Int : 421 ms Normal sinus rhythm Incomplete right bundle branch block Borderline ECG When compared with ECG of 25-Sep-2023 13:10, Premature atrial complexes are no longer Present Incomplete right bundle branch block is now Present Referred By: Generic ED Physician Electronically Signed By: Damon Rodriguez
[2024-10-05 08:55] VITALS: BP 140/75; PULSE 61; RESP 20; TEMP 35.6; O2SAT 98; BMI 42.7
--- NOTE | 2024-10-05 09:11 | ED_ITS ---
HPI - General Adult General Chief complaint: Arrhythmia/Palpitations Stated complaint: palpitations Time Seen by Provider: 10/05/24 09:11 Source: patient Mode of arrival: ambulatory Limitations: no limitations History of Present Illness ED Provider: Denise Reyes PA-C HPI narrative: Patient is a 78 year old assigned male at with a history of paroxysmal atrial fib not on anti coagulation, HTN, MARYBETH on CPAP, HLD, and BPH presenting to the emergency department today with palpitations, lightheadedness, and shortness of breath. Patient states that over the last few days he has had dyspnea on exertion to the point where after a few steps going up stairs or distance, he has to stop and rest because he feels like passing out. Patient states that he was recently on a 2+ hour flight to [place] and while in [place] he felt the symptoms begin. Patient states that it has been many years since his last stress test and he is supposed to be establishing with [facility] in the coming weeks but has not yet seen them. Patient states that the palpitations he felt did not feel similar to his previous episodes of atrial fib. Patient denies any abdominal pain, nausea, vomiting, fever, chills, blurry vision, double vision, loss of vision, chest pain, back pain, night sweats, pain with urination, increased urinary frequency, increased urinary urgency, blood in his urine or stool, syncope or a near syncopal episode, recent trauma or falls, bowel incontinence, bladder incontinence, or any other complaints at this time. Onset (ago): day(s) Relieving factors: none Exacerbating factors: none Associated symptoms: shortness of breath Treatments prior to arrival: none Related Data Home Medications ?Medication ?Instructions ?Recorded ?Confirmed coenzyme Q10 100 mg capsule 100 mg PO DAILY 05/14/20 08/07/24 (CoQ-10) urocvcinqxw-worygyjxs-sfc C-Mn 500 1 cap PO DAILY 05/14/20 08/07/24 mg-400 mg capsule cholecalciferol (vitamin D3) 25 25 mcg PO DAILY 10/25/21 08/07/24 mcg (1,000 unit) capsule Previous Rx's ?Medication ?Instructions ?Recorded loratadine 5 mg-pseudoephedrine ER 1 tab PO Q12H #20 tabs 08/07/24 120 mg tablet,extended release,12hr (Claritin-D 12 Hour) semaglutide (weight loss) 0.25 0.25 mg (0.5 mL) subcut QWEEK #2 mL 10/03/24 mg/0.5 mL subcutaneous pen injector (Shanon) hydrochlorothiazide 50 mg tablet 50 mg PO DAILY #90 tabs 10/04/24 levothyroxine 25 mcg tablet 25 mcg PO DAILY #90 tabs 10/04/24 metoprolol succinate 100 mg 100 mg PO DAILY 90 days #90 tabs 10/04/24 tablet,extended release 24 hr omeprazole 40 mg capsule,delayed 40 mg PO DAILY #90 caps 10/04/24 release tamsulosin 0.4 mg capsule (Flomax) 0.4 mg PO BEDTIME #90 caps 10/04/24 apixaban 5 mg tablet (Eliquis) 5 mg PO BID #60 tabs 10/05/24 dronedarone 400 mg tablet (Multaq) 400 mg PO BID #60 tabs 10/05/24 Allergies Allergy/AdvReac Type Severity Reaction Status Date / Time No Known Allergies Allergy Verified 10/05/24 08:57 [No Known Allergies*] Review of Systems 2 Constitutional: Constitutional: Reports no additional constitutional complaints, Denies chills, Denies fever(s) and Denies night sweats Eyes: Eyes: Reports no additional eye complaints, Denies blurry vision, Denies change in vision, Denies diplopia, Denies eye discharge, Denies loss of vision and Denies eye pain ENT: Reports dizziness (intermittent - with exertion ) Cardiovascular: Cardiovascular: Reports no additional cardiovascular complaints, Denies chest pain, Reports lightheadedness (intermittent - with exertion ), Denies Loss of Consciousness and Reports dyspnea (intermittent - with exertion ) Respiratory: Respiratory: Reports no additional respiratory complaints and Reports dyspnea (intermittent - with exertion ) Gastrointestinal: Gastrointestinal: Reports no additional gastrointestinal complaints, Denies abdominal pain, Denies melena, Denies hematochezia, Denies change in bowel habits and Denies change in stool character Genitourinary: Genitourinary: Reports no additional male genitourinary complaints, Denies hematuria, Denies oliguria, Denies difficulty urinating, Denies dysuria, Denies urinary frequency, Denies urinary hesitancy, Denies urinary incontinence and Denies urinary urgency Musculoskeletal: Musculoskeletal: Reports no additional musculoskeletal complaints, Denies numbness and Denies tingling Neurologic: Reports dizziness (intermittent - with exertion ), Denies loss of vision, Denies numbness and Denies tingling Psychiatric: Psychiatric: Reports no additional psychiatric complaints Endocrine: Endocrine: Reports no additional endocrine complaints Hematologic/Lymphatic: Hematologic/Lymphatic: Reports no additional hematologic/lymphatic complaints Allergic/Immunologic: Allergic/Immunologic: Reports no additional allergic/immunologic complaints PMFSH Past Medical History Attestation statement: The following information was validated with the patient. Source: old records reviewed and nursing notes reviewed Medical History Encounter for colorectal cancer screening using Cologuard test (09/08/24) Bilateral leg edema Leg edema Hyperlipidemia Primary osteoarthritis of left knee Major depressive disorder Diverticulosis Obstructive sleep apnea on CPAP Duodenal ulcer disease Acute bronchitis Morbid obesity PAF (paroxysmal atrial fibrillation) Arthritis Varicose vein of leg Elevated cholesterol On beta mayur at home History of blood transfusion Gutierrez esophagus MARYBETH on CPAP History of GI bleed Hypertension Heart palpitations Hx of duodenal ulcer Atrial fibrillation Surgical History History of colonoscopy with polypectomy (05/21/20) History of colonoscopy (~05/21/20) History of total hip replacement Hx of toe surgery History of total right knee replacement Hx of esophagogastroduodenoscopy History of ventral hernia repair Hx of appendectomy Family History Family History Father Lung cancer Mother Cancer Social History Social History Housing: House Are you a primary nanny caregiver to a significant other at home: No Do you presently have visiting nurse or other home services: No Alcohol intake: former Patient Tobacco Use Status: Former Tobacco user Smoked in Last 30 Days: No Use of substances other than those prescribed or required for medical reasons: No Advance Directives: No Advance Directives Information Provided: Yes service: No Current occupational status: employed Current occupation: self employed Cognitive needs: No Hearing needs: No Vision needs: Yes (reading glasses) Physical Exam ED Vital Signs: Vital Signs - 24 hr 10/05/24 08:55 10/05/24 09:15 10/05/24 13:06 Temperature 96.0 F L 97.1 F Pulse Rate 61 66 62 Respiratory Rate 20 22 H 18 Blood Pressure 140/75 H 115/61 138/79 Pulse Oximetry 98 97 97 Oxygen Delivery Method Room Air Room Air Room Air BMI result Body Mass Index 42.7 Const General: cooperative, no acute distress, alert and awake Nutritional Appearance: well nourished and obese Orientation/consciousness: patient oriented x3 Limitations: no limitations HENMT Head: Yes normal to inspection and Yes atraumatic Ears: hearing grossly normal bilaterally and external ears normal General nose exam: Normal external nose present, no nasal discharge noted and no epistaxis Face and sinus: Yes normal facial exam, No abrasion and No laceration Mouth: Normal oral and palatal mucosa present, no drooling and no muffled voice Eyes General: appearance normal, both eyes and all related structures Periorbital: periorbital findings normal Eyelids: Yes eyelids normal Conjunctivae: conjunctivae normal Pupils: Equal, round and reactive pupils present EOM: EOMs intact bilaterally Neck Neck: Yes normal visual inspection, Yes full ROM and Yes no lymphadenopathy Chest Chest palpation & inspection: normal inspection of the chest Resp Effort & Inspection: normal respiratory effort and able to speak in complete sentences GI Inspection: Yes normal to inspection Neuro General: patient oriented x3, moves all extremities and CN's II-XI intact bilaterally Cranial nerves: Yes Equal, round and reactive pupils present Cognition (Neuro): normal cognition Extrem General: Yes normal to inspection, Yes full ROM and Yes capillary refill normal Psych Appearance: grossly normal Mental Status: mental status grossly normal Affect: normal affect Attitude: cooperative Thought process: Normal thought process present Thought content: Normal thought content present Insight: Good insight present (Psych) Medications Administered Discontinued Medications Generic Name Dose Route Start Last Admin Trade Name Freq PRN Reason Stop Dose Admin Iohexol 100 ml 10/05/24 10:44 10/05/24 10:45 Iohexol 350 Mg/Ml 100 Ml Infus..Btl IV 10/05/24 10:45 65 ml ONCE ONE Administration Medical Decision Making Medical Decision Making [facility] Narrative: Patient is a 78 year old assigned male at with a history of paroxysmal atrial fib not on anti coagulation, HTN, MARYBETH on CPAP, HLD, and BPH presenting to the emergency department today with palpitations, lightheadedness, and shortness of breath. Patient's physical exam was unremarkable. Patient's blood work was unremarkable including flat troponins. Patient's EKG was unremarkable. Patient's chest x-ray and CT PE showed no acute process. Reviewing the patient's records, he had a recent echo that showed moderate aortic stenosis. I consulted with Dr. Rodriguez, the manager federal salesforce consultant, who met with and examined the patient. He recommended decreasing the patient's metoprolol to 50mg daily, starting Maltaq 400mg BID, starting Eliquis 5mg BID, and instructing the patient to stop all herbal medications. I explained my physical exam findings as well as all test results to the patient. I answered all questions asked by the patient. Patient remained asymptomatic while in the department. I stressed the importance of the patient taking his medication as directed (either prescribed or as the over the counter packaging recommends). I stressed the importance of the patient following up with his primary care provider and the manager federal. I stressed the importance of the patient returning to the emergency department immediately if his symptoms were to worsen or if he were to develop any dizziness, shortness of breath, difficulty breathing, chest pain, blurry vision, loss of vision, nausea, vomiting, abdominal pain, fever, chills, back pain, or any other complaints. Patient verbalized agreement and understanding with this treatment plan and discharge. Differential Diagnosis Differential Diagnoses: The differential diagnosis associated with the presentation includes Atrial fib Arrhythmia PE Aortic stenosis Admission/Observation Consideration of admission/observation: Escalation of care including admission/observation considered Patient would have been admitted to the hospital had his work up had any findings where hospital admission was appropriate and his clinical presentation warranted hospital admission. Consult Healthcare Provider Management of the patient was discussed with: Mapping Supervisor (I spoke with the manager federal as noted in the MDM Rationale portion of this note. ) Lab Data [facility] Lab Attestation statement: I reviewed the patient's lab results. My interpretation of these results are in the MDM Rationale portion of this note. 10/05/24 09:32 10/05/24 09:32 Labs: Lab Results 10/05/24 10/05/24 10/05/24 Range/Units 09:32 09:36 13:35 WBC 6.6 (4.8-10.8) X10*3/uL RBC 5.21 (4.60-5.80) X10*6/uL Hgb 15.8 (14.0-18.0) g/dl Hct 45.2 (42.0-52.0) % MCV 86.8 (80.0-98.0) fL MCH 30.3 (27.0-33.0) pg MCHC 35.0 (31.0-36.0) g/dl RDW 13.5 (11.0-16.0) % Plt Count 143 L D (160-400) X10*3/uL MPV 11.3 (9.4-12.4) fL Immature Gran % (Auto) 0.5 H (0.0-0.4) % Neut % (Auto) 72.7 (45-73) % Lymph % (Auto) 11.2 L (20-40) % [place] % (Auto) 11.6 H (2-11) % Eos % (Auto) 3.5 (0-4) % Baso % (Auto) 0.5 (0-2) % Lymph # (Auto) 0.7 L (1.2-4.9) X10*3/uL [place] # (Auto) 0.8 (0.1-1.2) X10*3/uL Eos # (Auto) 0.2 (0.0-0.4) X10*3/uL Baso # (Auto) 0.0 (0.0-0.2) X10*3/uL Abs Immat Gran (auto) 0.03 (0.00-0.03) X10*3/uL Absolute Neuts (auto) 4.8 (2.0-8.3) x10*3/uL Absolute Nucleated RBC 0.000 (0.0-0.012) X10*3/uL Nucleated RBC % (auto) 0.0 (0.0-0.2) /100WBC PT 12.3 (10.9-12.4) SEC INR 1.1 (0.9-1.1) Sodium 142 (135-145) mmol/L Potassium 3.8 (3.3-5.1) mmol/L Chloride 107 (96-108) mmol/L Carbon Dioxide 27 (22-29) mmol/L Anion Gap 12 (12-20) BUN 28 H (9-16) mg/dL Creatinine 1.14 (0.5-1.4) mg/dL Estim Creat Clear Calc 71.6 Estimated GFR > 60 Random Glucose 119 H (60-115) mg/dL Calcium 9.5 D (8.4-10.2) mg/dL Total Bilirubin 0.5 (0.0-1.0) mg/dL AST 37 (5-37) U/L ALT 41 H (0-40) U/L Alkaline Phosphatase 84 (39-117) U/L Troponin I High Sens 9.6 11.1 (<3.5-35.0) ng/L B-Natriuretic Peptide 67 (<100) pg/mL Total Protein 6.8 (6.5-8.0) g/dL Albumin 3.9 (3.5-5.0) g/dL TSH 2.67 (0.32-4.0) uIU/mL Influenza Type A (PCR) NEGATIVE (Negative) Influenza Type B (PCR) NEGATIVE (Negative) RSV RNA Qual (PCR) NEGATIVE (Negative) SARS-CoV-2 RNA (RT-PCR) NEGATIVE (Negative) Independent Interpretation I performed an independent interpretation of an: EKG, Plain X-Ray and CT Scan Interpretation: My interpretation is in agreement with the radiologist's impression of these imaging studies. L Report Number: [id number]: Total DLP = 465.00 mGy-cm EXAMINATION: CT ANGIOGRAM CHEST CLINICAL INFORMATION: Dyspnea and lightheadedness, concern for PE. COMPARISON: 11/26/2017. X-ray dated 10/05/2024. TECHNIQUE: Multiple axial images were obtained through the chest after the administration of 65 mL of Omnipaque 350 intravenous contrast. Extensive vascular post-processing including two-dimensional and three- dimensional reformatted images were created and reviewed on an independent workstation. This CT examination was performed using dose optimization techniques as appropriate, variously including the following: *Automated exposure control *Adjustment of mA and/or kV according to patient size (this includes techniques or standardized protocols for targeted exams where dose is matched to indication/reason for exam; i.e. extremities or head) *Use of iterative reconstruction technique FINDINGS: VASCULAR: Study quality is adequate. There is no evidence of pulmonary emboli. The main pulmonary artery is normal in size. The aorta is normal in caliber and course. Minimal atheromatous calcification. The heart size is top normal. There are calcifications of the aortic and mitral annulus. There are aortic valvular calcifications. No pericardial effusion. Great vessels appear patent. Mild contrast reflux into the hepatic veins present suggesting increased right heart pressures. LUNGS: There is mild mosaic attenuation of both lungs. There is dependent subpleural atelectasis bilaterally. There is no focal pneumonia identified. There is thickening of the small airways suggesting bronchitis. There are no suspicious nodules or masses. There are no effusions or pneumothoraces. MEDIASTINUM: No abnormal lymph nodes or masses. Normal thyroid. Small to moderate size sliding hiatus hernia. AXILLA/CHEST WALL: No lymphadenopathy or mass. UPPER ABDOMEN: There is hepatomegaly with diffuse fatty infiltration. There is no suspicious hepatic lesion. Exophytic left renal cyst measuring 4.2 cm arising from the left kidney upper pole. Imaged bowel structures normal aside from mild diverticulosis. OSSEOUS STRUCTURES: No suspicious lytic or blastic bone lesions. There are degenerative changes of the spine. CT/CT angio chest PE protocol IMPRESSION: 1. No evidence of pulmonary embolus. No evidence of acute aortic syndrome or aneurysm. 2. There are calcifications of the aortic valve, suggesting possible aortic stenosis. There is borderline cardiac enlargement. 3. Mild contrast reflux into the hepatic veins present suggesting increased right heart pressures. 4. Mosaic attenuation of the lung parenchyma, most likely on the basis of underlying air trapping. Differential includes constrictive (obliterative) bronchiolitis, hypersensitivity pneumonitis, as well as less commonly bronchial asthma, and vasculitis. 5. Thickening of the small airways suggesting chronic bronchitis. 7. Hepatomegaly with diffuse fatty infiltration. 8. Small to moderate size hiatus hernia. Electronically signed by: John Burgos MD 10/05/2024 11:05 AM EDT Dictated By: John Burgos MD Signed By: Electronically signed by John Burgos MD 10/05/24 1105 EXAMINATION: XR CHEST CLINICAL INFORMATION: dizziness COMPARISON: 09/25/2023. TECHNIQUE: 2 views of the chest were obtained. FINDINGS: The cardiac, hilar, and mediastinal contours are normal. The lungs are clear bilaterally. There is no pneumothorax or pleural effusion. There is no focal osseous or soft tissue abnormality. There are spinal degenerative changes. XR/XR chest 2V IMPRESSION: No active pulmonary disease. Electronically signed by: John Burgos MD 10/05/2024 09:31 AM EDT RP Dictated By: John Burgos MD Signed By: Electronically signed by John Burgos MD 10/05/24 0931 I independently interpreted this EKG and am in agreement with the below findings: Vent. Rate: 63 BPM Atrial Rate: 63 BPM P-R Int: 188 ms QRS Dur: 102 ms QT Int: 412 ms P-R-T Axes: 16 -27 22 degrees QTcB Int: 421 ms Normal sinus rhythm Incomplete right bundle branch block When compared with ECG of 25-Sep-2023 13:10, Premature atrial complexes are no longer Present Incomplete right bundle branch block is now Present DD/ 0850 Radiology Impression Discussion of test interpretation with radiology: I have reviewed the radiologist's reading. Chronic Conditions Patient?s care impacted by: Hypertension Critical Care Time Critical Care Time Critical Care Time: Yes Total Critical Care Time: 39 Attestation: I spent 39 minutes of Critical Care Time with this patient. This does not include time spent on separately reported billable procedures. Discharge Plan Discharge Clinical Impression: Palpitation, Dizziness Patient Disposition: Home, Self-Care Instructions: Heart Palpitations (DC), Dizziness (ED) Additional Instructions: Begin taking Multaq 400mg twice daily Decrease your metoprolol dose to half (50mg) daily Begin taking Eliquis 5mg BID STOP ANY AND ALL HERBAL MEDICATIONS. Follow up with your primary care provider and the manager federal. Return to the emergency department immediately if your symptoms worsen or if you develop any numbness, tingling, dizziness, shortness of breath, difficulty breathing, chest pain, blurry vision, loss of vision, nausea, vomiting, abdominal pain, fever, chills, back pain, or any other complaints. Please see the information below about our Patient Portal. If you are not yet enrolled in the [facility] Patient Portal, you will receive an enrollment email invitation following your visit to any [facility] setting. You may also self-enroll in the Patient Portal by visiting our website: [email or web address] The following information is required to access the Patient Portal: - Your [facility] Medical Record Number - Your personal home email address (must match what is in your electronic medical record, Registration staff can assist with this) - Name - Date of Capabilities of the Patient Portal: - Message some providers - View upcoming appointments - Access your health summary, medical history, and visit history - View current conditions and allergies - View procedure and lab results - View your medications, including guidelines, side effects, and precautions - Complete pre-appointment questionnaires requested by your provider - Ready summary reports of your office visits and procedures To access the Patient Portal Mobile [employer], follow these directions: - Search [employer] in the [employer] Store or [employer] Store - Download the [employer] - Search for [facility] - Enter your login/password Prescriptions: New Multaq 400 mg tablet 400 mg PO BID Qty: 60 0RF Rx Instructions: must administer with a meal/food Eliquis 5 mg tablet 5 mg PO BID Qty: 60 0RF No Action metoprolol succinate 100 mg tablet extended release 24 hr 100 mg PO DAILY 90 Days Qty: 90 1RF omeprazole 40 mg capsule,delayed release(DR/EC) 40 mg PO DAILY Qty: 90 1RF hydrochlorothiazide 50 mg tablet 50 mg PO DAILY Qty: 90 1RF levothyroxine 25 mcg tablet 25 mcg PO DAILY Qty: 90 1RF tamsulosin [Flomax] 0.4 mg capsule 0.4 mg PO BEDTIME Qty: 90 0RF Rx Instructions: stop and call MD for persistent dizziness coenzyme Q10 [CoQ-10] 100 mg Capsule 100 mg PO DAILY [id number] C-Mn 500-400 mg Capsule 1 cap PO DAILY cholecalciferol (vitamin D3) 25 mcg (1,000 unit) capsule 25 mcg PO DAILY Claritin-D 12 Hour 5-120 mg tablet extended release 12 hr 1 tab PO Q12H Qty: 20 0RF Wegovy 0.25 mg/0.5 mL pen injector 0.25 mg subcut QWEEK Qty: 2 0RF Rx Instructions: administer weeks 1 through 4 of therapy Referrals: [facility] [Provider Group] Print Language: Romanian
[2024-10-05 09:15] VITALS: BP 115/61; PULSE 66; RESP 22; TEMP 36.2; O2SAT 97
[2024-10-05 09:39] LABS: MANUAL DIFF FLAG NO
[2024-10-05 09:52] LABS: Basophils Percent Auto 0.5 % (0-2); Eosinophils Absolute Auto 0.2 X10*3/uL (0.0-0.4); Eosinophils Percent Auto 3.5 % (0-4); Hematocrit 45.2 % (42.0-52.0); Hemoglobin 15.8 g/dl (14.0-18.0); Imm Gran Abs Auto 0.03 X10*3/uL (0.00-0.03); Imm Gran Pct Auto 0.5 % (0.0-0.4); Lymphocytes Absolute Auto 0.7 X10*3/uL (1.2-4.9); Lymphocytes Percent Auto 11.2 % (20-40); Mean Corpuscular Hemoglobin 30.3 pg (27.0-33.0); Mean Corpuscular Volume 86.8 fL (80.0-98.0); Mean Platelet Volume 11.3 fL (9.4-12.4); Monocytes Absolute Auto 0.8 X10*3/uL (0.1-1.2); Monocytes Percent Auto 11.6 % (2-11); Neutrophils Absolute Auto 4.8 x10*3/uL (2.0-8.3); Neutrophils Percent Auto 72.7 % (45-73); Platelet Count 143 X10*3/uL (160-400); Red Blood Count 5.21 X10*6/uL (4.60-5.80); Red Cell Distribution Width 13.5 % (11.0-16.0); White Blood Count 6.6 X10*3/uL (4.8-10.8)
[2024-10-05 09:55] LABS: INTERNATIONAL NORM RATIO 1.1 (0.9-1.1); Prothrombin Time 12.3 SEC (10.9-12.4)
--- OUTSIDE RECORDS SUMMARY | 2024-10-05 10:03 | XMS_ITS | Clinical Summary ---
Author Organization [facility] ity Address [address] [place] [address] Care Team Providers Care Food Services Manager Name Role Phone Unavailable Primary Care Provider [...]
--- OUTSIDE RECORDS SUMMARY | 2024-10-05 10:03 | XMS_ITS | Clinical Summary ---
Author Organization [facility] [place] [address] Care Team Providers Care Link Trainer Teacher Name Role Phone Chris Alegria MD Primary Care Provider [phone] Allergies No known active allergies Medications Medication [...] - Influenza standard series) 02/27/2024 Care Teams Link Trainer Teacher Relationship Specialty Start Date End Date Chris Alegria MD [address] [place] [address] [facility] - General 05/20/10
--- OUTSIDE RECORDS SUMMARY | 2024-10-05 10:03 | XMS_ITS | Clinical Summary ---
Author Organization [facility] Address [address] [place] [address] Care Team Providers Care Fig Caprifier Name Role Phone Ulices Elias Primary Care [...] Date Smoking Tobacco: Never Assessed Comments:Smoking Status:Toba patient account specialist use:Sleep Medicine Migration - Source Name: Tobacco [...] this topic Zoster (Zostavax) Discontinued Care Teams Fig Caprifier Relationship Specialty Start Date End Date Ulices Elias PCP - General 02/01/23
[2024-10-05 10:04] LABS: B Type Natriuretic Peptide 67 pg/mL (<100)
[2024-10-05 10:05] LABS: Alanine Aminotransferase 41 U/L (0-40); Albumin Level 3.9 g/dL (3.5-5.0); Alkaline Phosphatase 84 U/L (39-117); Anion Gap 12 (12-20); Aspartate Amino Transferase 37 U/L (5-37); Bilirubin Total 0.5 mg/dL (0.0-1.0); Blood Urea Nitrogen 28 mg/dL (9-16); Calcium 9.5 mg/dL (8.4-10.2); Carbon Dioxide 27 mmol/L (22-29); Chloride 107 mmol/L (96-108); Creatinine Clr Calc Pharmacy 71.6; Estimated Glomerular Filt Rate > 60; Glucose Random 119 mg/dL (60-115); Potassium 3.8 mmol/L (3.3-5.1); Sodium 142 mmol/L (135-145); Total Protein 6.8 g/dL (6.5-8.0)
[2024-10-05 10:07] LABS: Troponin-I High Sensitivity 9.6 ng/L (<3.5-35.0)
[2024-10-05 10:19] LABS: TSH reflex Free T4 2.67 uIU/mL (0.32-4.0)
[2024-10-05 10:26] LABS: Influenza A PCR NEGATIVE (Negative); Influenza B PCR NEGATIVE (Negative); Resp Syncy Virus RNA Qual PCR NEGATIVE (Negative); SARS COV2 PCR INHOUSE NEGATIVE (Negative)
[2024-10-05] MEDS: iohexoL 350 MG/ML 100 ML INFUS..BTL IV (10:45)
[2024-10-05 13:06] VITALS: BP 138/79; PULSE 62; RESP 18; O2SAT 97
[2024-10-05 14:06] LABS: Troponin-I High Sensitivity 11.1 ng/L (<3.5-35.0)
[2024-10-05 15:36] VITALS: BP 132/72; PULSE 87; RESP 20; TEMP 36.6; O2SAT 97
[2024-10-05 15:40] VITALS: BP 132/72; PULSE 87; RESP 20; TEMP 36.6; O2SAT 97
--- NOTE | 2024-10-05 16:21 | PM.CNCAR ---
History of Present Illness History of Present Illness Date of Service: 10/05/24 Requesting physician: Denise Reyes Consult reason: atrial fibrillation Chief complaint: palpitations Narrative: 78-year-old gentleman with obesity, paroxysmal atrial fibrillation, moderate aortic valve stenosis and Gutierrez's esophagus. He is here for palpitations and dizziness. He is saying that when he develops atrial fibrillation he gets dizzy and gets palpitations. He has noticed that these episodes are happening more frequently. He also has noticed that he is getting more short of breath with activities. Recent echocardiography has shown moderate aortic valve stenosis. He is denying any chest discomfort. He is a physician by profession. He takes herbal supplements and has not taken any anticoagulation in the past. He is taking hydrochlorothiazide and Toprol-XL. He takes herbal supplements which I do not know details about. [facility] Past Medical History Medical History Encounter for colorectal cancer screening using Cologuard test (09/08/24) Bilateral leg edema Leg edema Hyperlipidemia Primary osteoarthritis of left knee Major depressive disorder Diverticulosis Obstructive sleep apnea on CPAP Duodenal ulcer disease Acute bronchitis Morbid obesity PAF (paroxysmal atrial fibrillation) Arthritis Varicose vein of leg Elevated cholesterol On beta mayur at home History of blood transfusion Gutierrez esophagus MARYBETH on CPAP History of GI bleed Hypertension Heart palpitations Hx of duodenal ulcer Atrial fibrillation Family History Family History Father Lung cancer Mother Cancer Surgical History Surgical History History of colonoscopy with polypectomy (05/21/20) History of colonoscopy (~05/21/20) History of total hip replacement Hx of toe surgery History of total right knee replacement Hx of esophagogastroduodenoscopy History of ventral hernia repair Hx of appendectomy Social History Social History Housing: House Are you a primary healthcare administration internship to a significant other at home: No Do you presently have visiting nurse or other home services: No Alcohol intake: former Patient Tobacco Use Status: Former Tobacco user service: No Current occupational status: employed Current occupation: self employed Cognitive needs: No Hearing needs: No Vision needs: Yes (reading glasses) Meds Allergies Allergy/AdvReac Type Severity Reaction Status Date / Time No Known Allergies Allergy Verified 10/05/24 08:57 [No Known Allergies*] Home Medications ?Medication ?Instructions ?Recorded ?Confirmed ?Last Taken ?Type coenzyme Q10 100 mg capsule 100 mg PO DAILY 05/14/20 08/07/24 Unknown History (CoQ-10) [id number] C-Mn 500 1 cap PO DAILY 05/14/20 08/07/24 Unknown History mg-400 mg capsule cholecalciferol (vitamin D3) 25 25 mcg PO DAILY 10/25/21 08/07/24 Unknown History mcg (1,000 unit) capsule Physical Exam Vital Signs: Vital Signs: Last Vital Signs Temp 97.9 F 10/05/24 15:40 Pulse 87 10/05/24 15:40 Resp 20 10/05/24 15:40 BP 132/72 10/05/24 15:40 Pulse Ox 97 10/05/24 15:40 O2 Del Method Room Air 10/05/24 15:40 BMI result Body Mass Index 42.7 GENERAL APPEARANCE: in no acute distress, pleasant. NECK: no carotid bruit, no jugular venous distention. SKIN: no suspicious lesions, warm and dry. HEART: Ejection systolic murmur aortic area with preserved 2nd heart sound, regular rate and rhythm. LUNGS: clear to auscultation bilaterally. ABDOMEN: soft, nontender. EXTREMITIES: no edema. PERIPHERAL PULSES: equal. NEUROLOGIC: No gross deficits, AAO X 3 Objective Labs and Meds 10/05/24 09:32 10/05/24 09:32 Lab results: Laboratory Results - last 24 hr 10/05/24 10/05/24 10/05/24 09:32 09:36 13:35 WBC 6.6 RBC 5.21 Hgb 15.8 Hct 45.2 MCV 86.8 MCH 30.3 MCHC 35.0 RDW 13.5 Plt Count 143 L D MPV 11.3 Immature Gran % (Auto) 0.5 H Neut % (Auto) 72.7 Lymph % (Auto) 11.2 L [place] % (Auto) 11.6 H Eos % (Auto) 3.5 Baso % (Auto) 0.5 Lymph # (Auto) 0.7 L [place] # (Auto) 0.8 Eos # (Auto) 0.2 Baso # (Auto) 0.0 Abs Immat Gran (auto) 0.03 Absolute Neuts (auto) 4.8 Absolute Nucleated RBC 0.000 Nucleated RBC % (auto) 0.0 PT 12.3 INR 1.1 Sodium 142 Potassium 3.8 Chloride 107 Carbon Dioxide 27 Anion Gap 12 BUN 28 H Creatinine 1.14 Estim Creat Clear Calc 71.6 Estimated GFR > 60 Random Glucose 119 H Calcium 9.5 D Total Bilirubin 0.5 AST 37 ALT 41 H Alkaline Phosphatase 84 Troponin I High Sens 9.6 11.1 B-Natriuretic Peptide 67 Total Protein 6.8 Albumin 3.9 TSH 2.67 Influenza Type A (PCR) NEGATIVE Influenza Type B (PCR) NEGATIVE RSV RNA Qual (PCR) NEGATIVE SARS-CoV-2 RNA (RT-PCR) NEGATIVE Imaging Radiologist's impression: Impressions Chest X-Ray 10/05/24 09:12 IMPRESSION: No active pulmonary disease. Electronically signed by: John Burgos MD 10/05/2024 09:31 AM EDT Chest CTA 10/05/24 10:24 IMPRESSION: 1. No evidence of pulmonary embolus. No evidence of acute aortic syndrome or aneurysm. 2. There are calcifications of the aortic valve, suggesting possible aortic stenosis. There is borderline cardiac enlargement. 3. Mild contrast reflux into the hepatic veins present suggesting increased right heart pressures. 4. Mosaic attenuation of the lung parenchyma, most likely on the basis of underlying air trapping. Differential includes constrictive (obliterative) bronchiolitis, hypersensitivity pneumonitis, as well as less commonly bronchial asthma, and vasculitis. 5. Thickening of the small airways suggesting chronic bronchitis. 7. Hepatomegaly with diffuse fatty infiltration. 8. Small to moderate size hiatus hernia. Electronically signed by: John Burgos MD 10/05/2024 11:05 AM EDT Assessment and Plan (1) Palpitation: Status: Acute (2) Dizziness: Status: Acute Plan Pleasant 78 year gentleman with background of paroxysmal atrial fibrillation and moderate aortic valve stenosis presenting with palpitation and dizziness. He is saying that atrial fibrillation gives him exactly same symptoms with palpitations and dizziness. He thinks that he is getting more frequent episodes of atrial fibrillation. He is currently not on any antiarrhythmic therapy. He is on Toprol-XL. I discussed with him in detail that he takes her breath supplements and it is hard to know the interaction between these and any allopathic medicines in particular. I have advised him to stop the herbal supplements and start taking Multaq 400 mg twice a day and I am decreasing his Toprol-XL to 50 mg daily. I have advised him to take 5 mg twice a day of Eliquis. He is agreeable to make these changes. He can be discharged back home and we will arrange follow-up in the office with Dr. Warren. Aortic stenosis is moderate. He has dyspnea on exertion which will need further workup as outpatient. Clinically not in heart failure. Thank you for allowing me to participate in the care of your patient. Please feel free to contact me if you have any questions. Procedures Date of Service Date of Service: 10/05/24
== END 2024-10-05 15:41 | disposition home or self-care (01) ==
PROVIDERS: Physician Assistant Medical; Emergency Provider Emergency Medicine; PCP Internal Medicine
DX: R00.2 Palpitations (principal); R42 Dizziness and giddiness; R06.02 Shortness of breath; Z87.891 Personal history of nicotine dependence; Z03.818 Encounter for observation for suspected exposure to other biological agents ruled out; Z79.899 Other long term (current) drug therapy
CPT/HCPCS: 0241U; 36415; 71046; 71275; 80053; 83880; 84443; 84484; 85025; 85610; 93005; 99284; 99285; Q9967

== ENCOUNTER → 2024-10-05 09:11 | Outpatient (BNV) | payer MEDICARE, SELFPAY | PROVIDERS: Emergency Provider Emergency Medicine; PCP Internal Medicine; Visit Provider Internal Medicine Cardiovascular Disease | DX: R00.2 Palpitations (principal); R42 Dizziness and giddiness | CPT/HCPCS: 93010; 99285 ==

== ENCOUNTER → 2024-10-05 09:12 | Outpatient (BNV) | payer MEDICARE, SELFPAY | PROVIDERS: Emergency Provider Emergency Medicine; PCP Internal Medicine; Visit Provider Radiology Diagnostic Radiology | DX: I35.8 Other nonrheumatic aortic valve disorders (principal); J84.9 Interstitial pulmonary disease, unspecified; K44.9 Diaphragmatic hernia without obstruction or gangrene; R16.0 Hepatomegaly, not elsewhere classified; R42 Dizziness and giddiness | CPT/HCPCS: 71046; 71275 ==

== ENCOUNTER → 2024-11-14 07:59 | Outpatient (RCR) | payer BC, SELFPAY | END | disposition home or self-care (01) | LOC: HO.PTCHIC 06-20 08:54 | PROVIDERS: PCP Internal Medicine; Visit Provider Orthopaedic Surgery | DX: Z47.1 Aftercare following joint replacement surgery (principal); Z96.652 Presence of left artificial knee joint | CPT/HCPCS: 97110; 97112; 97116; 97161 ==

== ENCOUNTER → 2025-01-24 08:11 | Outpatient (REF) | payer MEDICARE, SELFPAY ==
--- OUTSIDE RECORDS SUMMARY | 2025-01-24 08:15 | XMS_ITS | Clinical Summary ---
[place] [address] Care Team Providers Care Dispensing And Measuring Optician Name Role Phone Chris Alegria MD Primary Care Provider [phone] Allergies No known active allergies Medications INDOMETHACIN ORAL 07/20/2001 A ctive Social History Tobacco Use Types Packs/Day Years Used Date Smoking Tobacco: Never Assessed Sex and Gender Information Value Date Recorded Sex Assigned at Not on file Legal Sex Male 5:52 AM EST Gender Identity Not on file Sexual [...] o f 1 - Influenza standard series) 02/26/2025 Insurance [employer]ICARE Care Teams Dispensing And Measuring Optician Relationship Specialty Start Date End Date Chris Alegria MD [address] [place] [address] PCP - General 05/20/10
--- OUTSIDE RECORDS SUMMARY | 2025-01-24 08:15 | XMS_ITS | Clinical Summary ---
Author Organization [facility] ity Address [address] [place] [address] Care Team Providers Care Outside Sales Associate Name Role Phone Unavailable Primary Care Provider [...] Vaccine ( - 2023-2 5 season) 2024 Depression Screening 06/28/2024 Influenza Vaccine (#1) 2025 HIB Vaccines Aged Out No longer [...]
--- OUTSIDE RECORDS SUMMARY | 2025-01-24 08:15 | XMS_ITS | Clinical Summary ---
Author Organization [facility] Address [address] [place] [address] Care Team Providers Care Laborer Pullet Farm Name Role Phone Ulices Elias Primary Care [...] Smoking Tobacco: Never Assessed Comments:Smoking Status:Toba accounting officer use:Sleep Medicine Migration - Source Name: Tobacco [...] - 2023-2 5 season) 2024 Influenza (#1) 2025 HPV Vaccine (No Doses Required) Completed Hep A Aged Out No longer eligi [...] this topic Zoster (Zostavax) Discontinued Care Teams Laborer Pullet Farm Relationship Specialty Start Date End Date Ulices Elias PCP - General 02/01/23
== END ==
LOC: HO.SL 08:11
PROVIDERS: PCP Internal Medicine; Visit Provider Physician Assistant Medical
DX: G47.19 Other hypersomnia (principal); G47.33 Obstructive sleep apnea (adult) (pediatric); R06.83 Snoring
CPT/HCPCS: 95806

== ENCOUNTER → 2025-01-24 08:37 | Outpatient (BNV) | payer MEDICARE, SELFPAY | PROVIDERS: PCP Internal Medicine; Visit Provider Internal Medicine | DX: G47.19 Other hypersomnia (principal); G47.33 Obstructive sleep apnea (adult) (pediatric) | CPT/HCPCS: 95806 ==